=== PATIENT | male | born 1935 | race Caucasian/White ===

== ENCOUNTER 2023-09-30 09:54 | Day surgery (SDC) | payer BC ==
[2023-09-30] MEDS ORDERED: DEXAMETHASONE 4 MG TABLET (FP) PO ONE (10:00)
[2023-09-30] MEDS ORDERED: GRANISETRON HCL 1 MG TABLET PO ONE (10:00)
[2023-09-30] MEDS ORDERED: BORTEZOMIB 2.5 MG/ML SUB-Q INJECTION SQ ONE (10:30)
[2023-09-30 10:45] LABS: BASO % 0.6 % (0-2.0); EOS % 2.2 % (0-4.5); HEMATOCRIT 24.2 % (35.4-49); HEMOGLOBIN 7.9 GM/dL (11.7-16.9); LYMPH % 22.9 % (8-40); MCH 30.9 pg (25.7-33.7); MCHC 32.6 g/dl (32.0-35.9); MEAN CELL VOLUME 94.8 fl (80-96); MEAN PLT VOLUME 7.1 fl (7.5-11.1); MONO % 7.4 % (3.8-10.2); NEUT % 66.9 % (42.8-82.8); PLATELET COUNT 269 10^3/uL (134-434); RBC 2.55 M/mm3 (4.00-5.60); RDW 16.8 % (11.9-15.9); WHITE BLOOD COUNT 2.8 K/mm3 (4.0-10.0)
[2023-09-30 11:07] LABS: POTASSIUM 4.2 mmol/L (3.5-5.1)
[2023-09-30 11:10] LABS: ALBUMIN 3.1 g/dl (3.4-5.0); BLOOD UREA NITROGEN 21.7 mg/dL (7-18); CALCIUM 10.5 mg/dL (8.5-10.1)
[2023-09-30 11:12] LABS: BILIRUBIN,DIRECT 0.1 mg/dL (0.0-0.2)
[2023-09-30 11:13] LABS: CREATININE 1.2 mg/dL (0.55-1.3)
[2023-09-30 11:15] LABS: TOT PROT 9.5 g/dl (6.4-8.2)
[2023-09-30 11:16] LABS: BILIRUBIN,TOTAL 0.3 mg/dL (0.2-1)
[2023-09-30 14:04] VITALS: BP 113/62; PULSE 91; RESP 18; TEMP 97.4
[2023-10-02 16:13] LABS: FREE KAPPA,SERUM 4.5 mg/L (3.3-19.4)
== END 2023-09-30 12:30 | disposition home or self-care (01) ==
LOC: JONCCHEMO 09:54 → J7W 09:55 → JONCCHEMO 12:30
PROVIDERS: ATTEND Internal Medicine Hematology & Oncology
DX: Z51.11 Encounter for antineoplastic chemotherapy (principal); C90.00 Multiple myeloma not having achieved remission
CPT/HCPCS: 36415; 80048; 80076; 82784; 83883; 84155; 84165; 85025; 96401; J9041

== ENCOUNTER 2023-10-07 10:01 | Day surgery (SDC) | payer BC ==
[~2023-10-07 10:01] MED LIST: BORTEZOMIB 2.5 MG/ML SUB-Q INJECTION SQ ONE; GRANISETRON HCL 1 MG TABLET PO ONE
[2023-10-07 10:57] LABS: BASO % 0.6 % (0-2.0); EOS % 1.8 % (0-4.5); LYMPH % 17.7 % (8-40); MCH 31.6 pg (25.7-33.7); MCHC 33.2 g/dl (32.0-35.9); MEAN CELL VOLUME 95.3 fl (80-96); MEAN PLT VOLUME 7.4 fl (7.5-11.1); MONO % 8.8 % (3.8-10.2); NEUT % 71.1 % (42.8-82.8); PLATELET COUNT 224 10^3/uL (134-434); RBC 2.52 M/mm3 (4.00-5.60); RDW 16.8 % (11.9-15.9); WHITE BLOOD COUNT 3.1 K/mm3 (4.0-10.0)
[2023-10-07 11:21] LABS: POTASSIUM 4.5 mmol/L (3.5-5.1)
[2023-10-07 11:24] LABS: ALBUMIN 3.1 g/dl (3.4-5.0); BLOOD UREA NITROGEN 22.8 mg/dL (7-18); CALCIUM 10.6 mg/dL (8.5-10.1)
[2023-10-07 11:27] LABS: BILIRUBIN,DIRECT 0.1 mg/dL (0.0-0.2); CREATININE 1.3 mg/dL (0.55-1.3)
[2023-10-07 11:29] LABS: BILIRUBIN,TOTAL 0.2 mg/dL (0.2-1); TOT PROT 9.4 g/dl (6.4-8.2)
[2023-10-07] MEDS: DEXAMETHASONE 4 MG TABLET (FP) PO ONE ×2 (12:15→12:19)
[2023-10-07 17:39] VITALS: BP 115/57; PULSE 66; RESP 18; TEMP 97.9
[2023-10-09 16:08] LABS: FREE KAPPA,SERUM 4.3 mg/L (3.3-19.4)
== END 2023-10-07 12:30 | disposition home or self-care (01) ==
LOC: J7W 10:01 → JONCCHEMO 10:01
PROVIDERS: ATTEND Internal Medicine Hematology & Oncology
DX: Z51.11 Encounter for antineoplastic chemotherapy (principal); C90.00 Multiple myeloma not having achieved remission
CPT/HCPCS: 36415; 80048; 80076; 82784; 83883; 84155; 84165; 85025; 96401; J9041

== ENCOUNTER 2023-10-14 09:40 | Day surgery (SDC) | payer BC ==
[2023-10-14] MEDS ORDERED: GRANISETRON HCL 1 MG TABLET PO ONE (10:00)
[2023-10-14] MEDS ORDERED: DEXAMETHASONE 4 MG TABLET (FP) PO ONE (10:00)
[2023-10-14] MEDS ORDERED: BORTEZOMIB 2.5 MG/ML SUB-Q INJECTION SQ ONE (10:00)
[2023-10-14 10:15] LABS: BASO % 0.4 % (0-2.0); EOS % 2.1 % (0-4.5); HEMOGLOBIN 7.5 GM/dL (11.7-16.9); LYMPH % 24.9 % (8-40); MCH 31.4 pg (25.7-33.7); MCHC 32.6 g/dl (32.0-35.9); MEAN CELL VOLUME 96.3 fl (80-96); MEAN PLT VOLUME 8.3 fl (7.5-11.1); MONO % 10.1 % (3.8-10.2); NEUT % 62.5 % (42.8-82.8); PLATELET COUNT 185 10^3/uL (134-434); RBC 2.39 M/mm3 (4.00-5.60); WHITE BLOOD COUNT 3.6 K/mm3 (4.0-10.0)
[2023-10-14 10:35] LABS: POTASSIUM 4.2 mmol/L (3.5-5.1)
[2023-10-14 10:37] LABS: BLOOD UREA NITROGEN 30.2 mg/dL (7-18)
[2023-10-14 10:38] LABS: ALBUMIN 2.9 g/dl (3.4-5.0)
[2023-10-14 10:40] LABS: BILIRUBIN,DIRECT 0.1 mg/dL (0.0-0.2); CREATININE 1.3 mg/dL (0.55-1.3)
[2023-10-14 10:42] LABS: BILIRUBIN,TOTAL 0.2 mg/dL (0.2-1); TOT PROT 8.9 g/dl (6.4-8.2)
[2023-10-14 16:13] VITALS: BP 122/53; PULSE 71; RESP 18; TEMP 97.7
[2023-10-15 17:09] LABS: FREE KAPPA,SERUM 4.5 mg/L (3.3-19.4)
== END 2023-10-14 12:00 | disposition home or self-care (01) ==
LOC: JONCCHEMO 09:40 → J7W 09:45 → JONCCHEMO 12:00
PROVIDERS: ATTEND Internal Medicine Hematology & Oncology
DX: Z51.11 Encounter for antineoplastic chemotherapy (principal); C90.00 Multiple myeloma not having achieved remission
CPT/HCPCS: 36415; 80048; 80076; 82784; 83883; 84155; 84165; 85025; 96401; J9041

== ENCOUNTER 2023-10-21 14:25 | Day surgery (SDC) | payer OTHER, BC ==
[2023-10-21 14:47] LABS: BASO % 0.4 % (0-2.0); EOS % 1.5 % (0-4.5); HEMATOCRIT 24.1 % (35.4-49); HEMOGLOBIN 7.9 GM/dL (11.7-16.9); LYMPH % 20.1 % (8-40); MCH 31.4 pg (25.7-33.7); MCHC 32.6 g/dl (32.0-35.9); MEAN CELL VOLUME 96.4 fl (80-96); PLATELET COUNT 185 10^3/uL (134-434); RBC 2.51 M/mm3 (4.00-5.60); RDW 17.1 % (11.9-15.9)
[2023-10-21 15:05] LABS: CALCIUM 8.9 mg/dL (8.5-10.1)
[2023-10-21 15:06] LABS: BLOOD UREA NITROGEN 18.3 mg/dL (7-18)
[2023-10-21 15:08] LABS: BILIRUBIN,DIRECT 0.1 mg/dL (0.0-0.2); CREATININE 1.2 mg/dL (0.55-1.3)
[2023-10-21 15:10] LABS: BILIRUBIN,TOTAL 0.2 mg/dL (0.2-1)
[2023-10-21] MEDS: DEXAMETHASONE 4 MG TABLET (FP) PO ONE ×2 (15:29→15:36)
[2023-10-21 18:07] VITALS: BP 119/56; PULSE 69; RESP 18; TEMP 98
[2023-10-23 16:09] LABS: FREE KAPPA,SERUM 5.9 mg/L (3.3-19.4)
== END 2023-10-21 16:30 | disposition home or self-care (01) ==
LOC: JONCCHEMO 14:25 → J7W 14:25 → JONCCHEMO 16:30
PROVIDERS: ATTEND Internal Medicine Hematology & Oncology
DX: Z51.11 Encounter for antineoplastic chemotherapy (principal); C90.00 Multiple myeloma not having achieved remission
CPT/HCPCS: 36415; 80048; 80076; 82784; 83883; 84155; 84165; 85025; 96401; J9041

== ENCOUNTER 2023-10-28 09:30 | Day surgery (SDC) | payer OTHER, BC ==
[~2023-10-28 09:30] MED LIST changes: -BORTEZOMIB 2.5 MG/ML SUB-Q INJECTION SQ ONE; +DEXAMETHASONE 4 MG TABLET (FP) PO ONE
[2023-10-28] MEDS ORDERED: BORTEZOMIB 2.5 MG/ML SUB-Q INJECTION SQ ONE (10:00)
[2023-10-28 10:36] LABS: BASO % 0.6 % (0-2.0); EOS % 2.9 % (0-4.5); HEMATOCRIT 25.2 % (35.4-49); HEMOGLOBIN 8.1 GM/dL (11.7-16.9); LYMPH % 21.2 % (8-40); MCH 30.8 pg (25.7-33.7); MEAN CELL VOLUME 96.2 fl (80-96); MONO % 8.9 % (3.8-10.2); NEUT % 66.4 % (42.8-82.8); PLATELET COUNT 220 10^3/uL (134-434); RBC 2.62 M/mm3 (4.00-5.60); RDW 16.8 % (11.9-15.9); WHITE BLOOD COUNT 3.1 K/mm3 (4.0-10.0)
[2023-10-28 11:04] LABS: POTASSIUM 4.1 mmol/L (3.5-5.1)
[2023-10-28 11:06] LABS: ALBUMIN 2.9 g/dl (3.4-5.0); BLOOD UREA NITROGEN 12.6 mg/dL (7-18); CALCIUM 8.7 mg/dL (8.5-10.1)
[2023-10-28 11:09] LABS: BILIRUBIN,DIRECT 0.1 mg/dL (0.0-0.2); CREATININE 1.2 mg/dL (0.55-1.3)
[2023-10-28 11:11] LABS: BILIRUBIN,TOTAL 0.2 mg/dL (0.2-1); TOT PROT 8.8 g/dl (6.4-8.2)
[2023-10-28 17:34] VITALS: BP 128/55; PULSE 70; RESP 16; TEMP 97.4
[2023-10-29 17:09] LABS: IG A QN SERUM. 5 mg/dL (61-437)
[2023-10-30 17:09] LABS: FREE KAPPA,SERUM 4.9 mg/L (3.3-19.4)
== END 2023-10-28 11:30 | disposition home or self-care (01) ==
LOC: JONCCHEMO 09:30 → J7W 09:48 → JONCCHEMO 11:30
PROVIDERS: ATTEND Internal Medicine Hematology & Oncology
DX: Z51.11 Encounter for antineoplastic chemotherapy (principal); C90.00 Multiple myeloma not having achieved remission
CPT/HCPCS: 36415; 80048; 80076; 82784; 83883; 84155; 84165; 85025; 96401; J9041

== ENCOUNTER 2023-11-04 09:52 | Day surgery (SDC) | payer BC, OTHER ==
[2023-11-04] MEDS ORDERED: BORTEZOMIB 2.5 MG/ML SUB-Q INJECTION SQ ONE (10:00)
[2023-11-04 10:40] LABS: BASO % 0.6 % (0-2.0); EOS % 2.8 % (0-4.5); HEMATOCRIT 24.1 % (35.4-49); HEMOGLOBIN 7.9 GM/dL (11.7-16.9); LYMPH % 19.9 % (8-40); MCH 31.1 pg (25.7-33.7); MCHC 32.5 g/dl (32.0-35.9); MEAN CELL VOLUME 95.7 fl (80-96); MEAN PLT VOLUME 7.6 fl (7.5-11.1); MONO % 10.1 % (3.8-10.2); NEUT % 66.6 % (42.8-82.8); PLATELET COUNT 231 10^3/uL (134-434); RBC 2.52 M/mm3 (4.00-5.60); RDW 15.8 % (11.9-15.9); WHITE BLOOD COUNT 3.4 K/mm3 (4.0-10.0)
[2023-11-04 10:50] LABS: POTASSIUM 4.3 mmol/L (3.5-5.1)
[2023-11-04 10:53] LABS: BLOOD UREA NITROGEN 24.2 mg/dL (7-18); CALCIUM 9.4 mg/dL (8.5-10.1)
[2023-11-04 10:56] LABS: BILIRUBIN,DIRECT 0.1 mg/dL (0.0-0.2); CREATININE 1.4 mg/dL (0.55-1.3)
[2023-11-04 10:58] LABS: BILIRUBIN,TOTAL 0.3 mg/dL (0.2-1); TOT PROT 8.9 g/dl (6.4-8.2)
[2023-11-04 17:07] VITALS: BP 137/70; PULSE 66; RESP 18; TEMP 98
[2023-11-05 16:07] LABS: FREE KAPPA,SERUM 5.8 mg/L (3.3-19.4)
[2023-11-05 18:07] LABS: IG A QN SERUM. 5 mg/dL (61-437)
== END 2023-11-04 12:30 | disposition home or self-care (01) ==
LOC: J7W 09:52 → JONCCHEMO 09:52
PROVIDERS: ATTEND Internal Medicine Hematology & Oncology
DX: Z51.11 Encounter for antineoplastic chemotherapy (principal); C90.00 Multiple myeloma not having achieved remission
CPT/HCPCS: 36415; 80048; 80076; 82784; 83883; 84155; 84165; 85025; 96401; J9041

== ENCOUNTER 2023-11-18 10:08 | Day surgery (SDC) | payer BC, OTHER ==
[~2023-11-18 10:08] MED LIST changes: +BORTEZOMIB 2.5 MG/ML SUB-Q INJECTION SQ ONE
[2023-11-18] MEDS ORDERED: BORTEZOMIB 2.5 MG/ML SUB-Q INJECTION SQ ONE (10:30)
[2023-11-18 11:03] LABS: BASO % 0.8 % (0-2.0); EOS % 3.7 % (0-4.5); HEMOGLOBIN 7.8 GM/dL (11.7-16.9); LYMPH % 18.3 % (8-40); MCH 31.2 pg (25.7-33.7); MCHC 32.5 g/dl (32.0-35.9); MEAN CELL VOLUME 96.2 fl (80-96); MEAN PLT VOLUME 7.3 fl (7.5-11.1); MONO % 6.4 % (3.8-10.2); NEUT % 70.8 % (42.8-82.8); PLATELET COUNT 243 10^3/uL (134-434); RBC 2.49 M/mm3 (4.00-5.60); RDW 15.9 % (11.9-15.9); WHITE BLOOD COUNT 3.2 K/mm3 (4.0-10.0)
[2023-11-18 11:16] LABS: POTASSIUM 4.3 mmol/L (3.5-5.1)
[2023-11-18 11:18] LABS: CALCIUM 9.1 mg/dL (8.5-10.1)
[2023-11-18 11:19] LABS: BLOOD UREA NITROGEN 18.6 mg/dL (7-18)
[2023-11-18 11:22] LABS: BILIRUBIN,DIRECT 0.1 mg/dL (0.0-0.2); CREATININE 1.2 mg/dL (0.55-1.3)
[2023-11-18 11:24] LABS: BILIRUBIN,TOTAL 0.2 mg/dL (0.2-1); TOT PROT 9.2 g/dl (6.4-8.2)
[2023-11-18 18:27] VITALS: BP 135/63; PULSE 71; RESP 20; TEMP 97.8
[2023-11-20 02:07] LABS: IG A QN SERUM. <5 mg/dL (61-437)
[2023-11-20 17:06] LABS: FREE KAPPA,SERUM 5.4 mg/L (3.3-19.4)
== END 2023-11-18 13:30 | disposition home or self-care (01) ==
LOC: JONCCHEMO 10:08 → J7W 10:09 → JONCCHEMO 13:30
PROVIDERS: ATTEND Internal Medicine Hematology & Oncology
DX: Z51.11 Encounter for antineoplastic chemotherapy (principal); C90.00 Multiple myeloma not having achieved remission
CPT/HCPCS: 36415; 80048; 80076; 82784; 83883; 84155; 84165; 85025; 96401; J9041

== ENCOUNTER 2023-11-25 10:29 | Day surgery (SDC) | payer OTHER, BC ==
[2023-11-25 11:23] LABS: BASO % 0.6 % (0-2.0); EOS % 3.4 % (0-4.5); HEMATOCRIT 23.9 % (35.4-49); HEMOGLOBIN 7.8 GM/dL (11.7-16.9); LYMPH % 21.3 % (8-40); MCH 31.2 pg (25.7-33.7); MCHC 32.6 g/dl (32.0-35.9); MEAN CELL VOLUME 95.6 fl (80-96); MEAN PLT VOLUME 7.8 fl (7.5-11.1); MONO % 13.5 % (3.8-10.2); NEUT % 61.2 % (42.8-82.8); PLATELET COUNT 228 10^3/uL (134-434); RDW 15.3 % (11.9-15.9)
[2023-11-25 11:55] LABS: POTASSIUM 4.2 mmol/L (3.5-5.1)
[2023-11-25 11:59] LABS: ALBUMIN 3.1 g/dl (3.4-5.0); BLOOD UREA NITROGEN 18.4 mg/dL (7-18); CALCIUM 9.6 mg/dL (8.5-10.1)
[2023-11-25 12:01] LABS: BILIRUBIN,DIRECT 0.1 mg/dL (0.0-0.2); CREATININE 1.2 mg/dL (0.55-1.3)
[2023-11-25 12:03] LABS: BILIRUBIN,TOTAL 0.2 mg/dL (0.2-1); TOT PROT 9.2 g/dl (6.4-8.2)
[2023-11-25] MEDS: GRANISETRON HCL 1 MG TABLET PO ONE (12:51)
[2023-11-25] MEDS: DEXAMETHASONE 4 MG TABLET (FP) PO ONE (12:51)
[2023-11-25] MEDS: BORTEZOMIB 2.5 MG/ML SUB-Q INJECTION SQ ONE (13:12)
[2023-11-25 15:29] VITALS: BP 130/62; PULSE 67; RESP 20; TEMP 97.9
[2023-11-26 17:07] LABS: FREE KAPPA,SERUM 5.3 mg/L (3.3-19.4); IG A QN SERUM. <5 mg/dL (61-437)
== END 2023-11-25 13:20 | disposition home or self-care (01) ==
LOC: JONCCHEMO 10:29 → J7W 10:30 → JONCCHEMO 13:20
PROVIDERS: ATTEND Internal Medicine Hematology & Oncology
DX: Z51.11 Encounter for antineoplastic chemotherapy (principal); C90.00 Multiple myeloma not having achieved remission
CPT/HCPCS: 36415; 80048; 80076; 82784; 83883; 84155; 84165; 85025; 96401; J9041

== ENCOUNTER 2023-12-02 10:04 | Day surgery (SDC) | payer OTHER, BC ==
[2023-12-02 10:56] LABS: BASO % 0.5 % (0-2.0); EOS % 2.7 % (0-4.5); HEMATOCRIT 24.4 % (35.4-49); HEMOGLOBIN 8.1 GM/dL (11.7-16.9); LYMPH % 18.5 % (8-40); MCH 31.8 pg (25.7-33.7); MCHC 33.3 g/dl (32.0-35.9); MEAN CELL VOLUME 95.5 fl (80-96); MEAN PLT VOLUME 7.8 fl (7.5-11.1); MONO % 11.8 % (3.8-10.2); NEUT % 66.5 % (42.8-82.8); PLATELET COUNT 225 10^3/uL (134-434); RBC 2.56 M/mm3 (4.00-5.60); RDW 15.8 % (11.9-15.9)
[2023-12-02] MEDS: DEXAMETHASONE SODIUM PHOSPHATE 20 MG, DIPHENHYDRAMINE 50 MG in SODIUM CHLORIDE 100 ML IVPB ONE (11:18)
[2023-12-02] MEDS: ACETAMINOPHEN 325 MG TABLET (FP) PO ONE (11:18)
[2023-12-02] MEDS: MONTELUKAST NA 10 MG TABLET PO ONE (11:19)
[2023-12-02 11:30] LABS: POTASSIUM 4.6 mmol/L (3.5-5.1)
[2023-12-02 11:32] LABS: CALCIUM 9.6 mg/dL (8.5-10.1)
[2023-12-02 11:33] LABS: ALBUMIN 3.3 g/dl (3.4-5.0); BLOOD UREA NITROGEN 32.6 mg/dL (7-18)
[2023-12-02 11:36] LABS: BILIRUBIN,DIRECT 0.1 mg/dL (0.0-0.2); CREATININE 1.5 mg/dL (0.55-1.3)
[2023-12-02 11:38] LABS: BILIRUBIN,TOTAL 0.3 mg/dL (0.2-1); TOT PROT 9.6 g/dl (6.4-8.2)
[2023-12-02] MEDS: BORTEZOMIB 2.5 MG/ML SUB-Q INJECTION SQ ONE (12:40)
[2023-12-02] MEDS: DARATUMUMAB-HYALURONIDASE-FIHJ (FASPRO) 15 ML VIAL SQ ONE (12:43)
[2023-12-02 16:13] VITALS: RESP 20; TEMP 97.8
[2023-12-02 16:22] VITALS: BP 134/60; PULSE 72
[2023-12-03 15:07] LABS: IG A QN SERUM. <5 mg/dL (61-437)
[2023-12-03 16:09] LABS: FREE KAPPA,SERUM 6.4 mg/L (3.3-19.4)
== END 2023-12-02 14:00 | disposition home or self-care (01) ==
LOC: JONCCHEMO 10:04 → J7W 10:06 → JONCCHEMO 14:00
PROVIDERS: ATTEND Internal Medicine Hematology & Oncology
PROC: 3E033GC Introduction of Other Therapeutic Substance into Peripheral Vein, Percutaneous Approach (ICD-10-PCS; principal; 2023-12-02)
PROC: 3E01305 Introduction of Other Antineoplastic into Subcutaneous Tissue, Percutaneous Approach (ICD-10-PCS; 2023-12-02)
PROC: 3E01305 Introduction of Other Antineoplastic into Subcutaneous Tissue, Percutaneous Approach (ICD-10-PCS; 2023-12-02)
DX: Z51.11 Encounter for antineoplastic chemotherapy (principal); C90.00 Multiple myeloma not having achieved remission
CPT/HCPCS: 36415; 80048; 80076; 82784; 83883; 84155; 84165; 85025; 86850; 86900; 86901; 96365; 96401; J9041; J9144

== ENCOUNTER 2023-12-09 10:16 | Day surgery (SDC) | payer OTHER, BC ==
[2023-12-09 11:05] LABS: BASO % 0.1 % (0-2.0); HEMATOCRIT 23.1 % (35.4-49); HEMOGLOBIN 7.6 GM/dL (11.7-16.9); LYMPH % 7.7 % (8-40); MCH 31.3 pg (25.7-33.7); MEAN CELL VOLUME 94.8 fl (80-96); MEAN PLT VOLUME 8.7 fl (7.5-11.1); MONO % 8.9 % (3.8-10.2); NEUT % 82.3 % (42.8-82.8); PLATELET COUNT 182 10^3/uL (134-434); RBC 2.44 M/mm3 (4.00-5.60); RDW 14.9 % (11.9-15.9); WHITE BLOOD COUNT 3.5 K/mm3 (4.0-10.0)
[2023-12-09 11:21] LABS: POTASSIUM 4.1 mmol/L (3.5-5.1)
[2023-12-09 11:24] LABS: ALBUMIN 2.9 g/dl (3.4-5.0); BLOOD UREA NITROGEN 29.9 mg/dL (7-18)
[2023-12-09 11:27] LABS: BILIRUBIN,DIRECT 0.1 mg/dL (0.0-0.2); CREATININE 1.3 mg/dL (0.55-1.3)
[2023-12-09 11:28] LABS: TOT PROT 8.8 g/dl (6.4-8.2)
[2023-12-09 11:29] LABS: BILIRUBIN,TOTAL 0.2 mg/dL (0.2-1)
[2023-12-09] MEDS: ACETAMINOPHEN 325 MG TABLET (FP) PO ONE (11:36)
[2023-12-09] MEDS: DEXAMETHASONE SODIUM PHOSPHATE 20 MG, DIPHENHYDRAMINE 50 MG in SODIUM CHLORIDE 100 ML IVPB ONE (11:36)
[2023-12-09] MEDS: GRANISETRON HCL 1 MG TABLET PO ONE (12:17)
[2023-12-09] MEDS: BORTEZOMIB 2.5 MG/ML SUB-Q INJECTION SQ ONE (13:25)
[2023-12-09] MEDS: DARATUMUMAB-HYALURONIDASE-FIHJ (FASPRO) 15 ML VIAL SQ ONE (13:26)
[2023-12-09 16:45] VITALS: RESP 18; TEMP 97.9
[2023-12-09 16:49] VITALS: BP 112/54; PULSE 74
[2023-12-10 17:06] LABS: FREE KAPPA,SERUM 3.5 mg/L (3.3-19.4)
[2023-12-13 07:12] LABS: IG A QN SERUM. <5 mg/dL (61-437)
== END 2023-12-09 15:00 | disposition home or self-care (01) ==
LOC: JONCCHEMO 10:16 → J7W 10:17 → JONCCHEMO 15:00
PROVIDERS: ATTEND Internal Medicine Hematology & Oncology
PROC: 3E01305 Introduction of Other Antineoplastic into Subcutaneous Tissue, Percutaneous Approach (ICD-10-PCS; principal; 2023-12-09)
PROC: 3E01305 Introduction of Other Antineoplastic into Subcutaneous Tissue, Percutaneous Approach (ICD-10-PCS; 2023-12-09)
PROC: 3E033GC Introduction of Other Therapeutic Substance into Peripheral Vein, Percutaneous Approach (ICD-10-PCS; 2023-12-09)
DX: Z51.11 Encounter for antineoplastic chemotherapy (principal); C90.00 Multiple myeloma not having achieved remission
CPT/HCPCS: 36415; 80048; 80076; 82784; 83883; 84155; 84165; 85025; 96365; 96401; J9041; J9144

== ENCOUNTER 2023-12-16 09:45 | Day surgery (SDC) | payer OTHER, BC ==
[2023-12-16 10:06] LABS: BASO % 0.1 % (0-2.0); EOS % 0.2 % (0-4.5); HEMATOCRIT 22.5 % (35.4-49); HEMOGLOBIN 7.5 GM/dL (11.7-16.9); LYMPH % 9.3 % (8-40); MCH 31.3 pg (25.7-33.7); MCHC 33.4 g/dl (32.0-35.9); MEAN CELL VOLUME 93.8 fl (80-96); MONO % 8.3 % (3.8-10.2); NEUT % 82.1 % (42.8-82.8); PLATELET COUNT 206 10^3/uL (134-434); RBC 2.39 M/mm3 (4.00-5.60); RDW 15.3 % (11.9-15.9); WHITE BLOOD COUNT 3.9 K/mm3 (4.0-10.0)
[2023-12-16 10:20] VITALS: RESP 20; TEMP 98.2
[2023-12-16 10:33] LABS: POTASSIUM 4.3 mmol/L (3.5-5.1)
[2023-12-16 10:38] LABS: CALCIUM 8.7 mg/dL (8.5-10.1)
[2023-12-16 10:39] LABS: ALBUMIN 2.8 g/dl (3.4-5.0); BLOOD UREA NITROGEN 26.4 mg/dL (7-18)
[2023-12-16 10:41] LABS: BILIRUBIN,DIRECT 0.1 mg/dL (0.0-0.2)
[2023-12-16 10:42] LABS: CREATININE 1.3 mg/dL (0.55-1.3)
[2023-12-16 10:43] LABS: BILIRUBIN,TOTAL 0.2 mg/dL (0.2-1); TOT PROT 8.6 g/dl (6.4-8.2)
[2023-12-16] MEDS: ACETAMINOPHEN 325 MG TABLET (FP) PO ONE (11:28)
[2023-12-16] MEDS: DEXAMETHASONE SODIUM PHOSPHATE 20 MG, DIPHENHYDRAMINE 50 MG in SODIUM CHLORIDE 100 ML IVPB ONE (11:28)
[2023-12-16] MEDS: GRANISETRON HCL 1 MG TABLET PO ONE (11:29)
[2023-12-16] MEDS: DARATUMUMAB-HYALURONIDASE-FIHJ (FASPRO) 15 ML VIAL SQ ONE (13:01)
[2023-12-16] MEDS: BORTEZOMIB 2.5 MG/ML SUB-Q INJECTION SQ ONE (13:02)
[2023-12-16 14:17] VITALS: BP 115/57; PULSE 73
[2023-12-17 17:08] LABS: IG A QN SERUM. <5 mg/dL (61-437)
[2023-12-18 17:07] LABS: FREE KAPPA,SERUM 3.3 mg/L (3.3-19.4)
== END 2023-12-16 14:00 | disposition home or self-care (01) ==
LOC: JONCCHEMO 09:45 → J7W 09:46 → JONCCHEMO 14:00
PROVIDERS: ATTEND Internal Medicine Hematology & Oncology
PROC: 3E033GC Introduction of Other Therapeutic Substance into Peripheral Vein, Percutaneous Approach (ICD-10-PCS; principal; 2023-12-16)
PROC: 3E01305 Introduction of Other Antineoplastic into Subcutaneous Tissue, Percutaneous Approach (ICD-10-PCS; 2023-12-16)
PROC: 3E01305 Introduction of Other Antineoplastic into Subcutaneous Tissue, Percutaneous Approach (ICD-10-PCS; 2023-12-16)
DX: Z51.11 Encounter for antineoplastic chemotherapy (principal); C90.00 Multiple myeloma not having achieved remission
CPT/HCPCS: 36415; 80048; 80076; 82784; 83883; 84155; 84165; 85025; 96365; 96401; J9041; J9144

== ENCOUNTER 2023-12-23 08:50 | Day surgery (SDC) | payer OTHER, BC ==
[2023-12-23 10:36] VITALS: RESP 18; TEMP 98.2
[2023-12-23 10:37] LABS: BASO % 0.1 % (0-2.0); EOS % 0.2 % (0-4.5); HEMATOCRIT 23.3 % (35.4-49); HEMOGLOBIN 7.5 GM/dL (11.7-16.9); LYMPH % 10.7 % (8-40); MCH 30.5 pg (25.7-33.7); MCHC 32.2 g/dl (32.0-35.9); MEAN CELL VOLUME 94.7 fl (80-96); MEAN PLT VOLUME 7.9 fl (7.5-11.1); MONO % 8.2 % (3.8-10.2); NEUT % 80.8 % (42.8-82.8); PLATELET COUNT 245 10^3/uL (134-434); RBC 2.46 M/mm3 (4.00-5.60); RDW 15.3 % (11.9-15.9); WHITE BLOOD COUNT 3.3 K/mm3 (4.0-10.0)
[2023-12-23 11:13] LABS: POTASSIUM 4.3 mmol/L (3.5-5.1)
[2023-12-23 11:17] LABS: ALBUMIN 2.8 g/dl (3.4-5.0); BLOOD UREA NITROGEN 14.8 mg/dL (7-18); CALCIUM 8.3 mg/dL (8.5-10.1)
[2023-12-23 11:20] LABS: BILIRUBIN,DIRECT 0.1 mg/dL (0.0-0.2); CREATININE 1.2 mg/dL (0.55-1.3)
[2023-12-23 11:22] LABS: BILIRUBIN,TOTAL 0.2 mg/dL (0.2-1); TOT PROT 8.5 g/dl (6.4-8.2)
[2023-12-23] MEDS: GRANISETRON HCL 1 MG TABLET PO ONE (11:42)
[2023-12-23] MEDS: DEXAMETHASONE SODIUM PHOSPHATE 20 MG, DIPHENHYDRAMINE 50 MG in SODIUM CHLORIDE 100 ML IVPB ONE (11:42)
[2023-12-23] MEDS: ACETAMINOPHEN 325 MG TABLET (FP) PO ONE (11:42)
[2023-12-23] MEDS: BORTEZOMIB 2.5 MG/ML SUB-Q INJECTION SQ ONE (12:41)
[2023-12-23] MEDS: DARATUMUMAB-HYALURONIDASE-FIHJ (FASPRO) 15 ML VIAL SQ ONE (12:42)
[2023-12-23 15:23] VITALS: BP 115/56; PULSE 71
[2023-12-24 16:08] LABS: IG A QN SERUM. 5 mg/dL (61-437)
[2023-12-25 17:07] LABS: FREE KAPPA,SERUM 2.7 mg/L (3.3-19.4)
== END 2023-12-23 13:50 | disposition home or self-care (01) ==
LOC: JONCCHEMO 08:50 → J7W 10:00 → JONCCHEMO 13:50
PROVIDERS: ATTEND Internal Medicine Hematology & Oncology
PROC: 3E033GC Introduction of Other Therapeutic Substance into Peripheral Vein, Percutaneous Approach (ICD-10-PCS; principal; 2023-12-23)
PROC: 3E01305 Introduction of Other Antineoplastic into Subcutaneous Tissue, Percutaneous Approach (ICD-10-PCS; 2023-12-23)
PROC: 3E01305 Introduction of Other Antineoplastic into Subcutaneous Tissue, Percutaneous Approach (ICD-10-PCS; 2023-12-23)
DX: Z51.11 Encounter for antineoplastic chemotherapy (principal); C90.00 Multiple myeloma not having achieved remission
CPT/HCPCS: 36415; 80048; 80076; 82784; 83883; 84153; 85025; 96365; 96401; J9041; J9144

== ENCOUNTER 2023-12-30 09:55 | Day surgery (SDC) | payer OTHER, BC ==
[2023-12-30 10:27] LABS: BASO % 0.1 % (0-2.0); EOS % 0.1 % (0-4.5); HEMATOCRIT 24.7 % (35.4-49); HEMOGLOBIN 8.1 GM/dL (11.7-16.9); LYMPH % 13.9 % (8-40); MCH 30.5 pg (25.7-33.7); MCHC 32.6 g/dl (32.0-35.9); MEAN CELL VOLUME 93.4 fl (80-96); MEAN PLT VOLUME 7.6 fl (7.5-11.1); NEUT % 78.9 % (42.8-82.8); PLATELET COUNT 273 10^3/uL (134-434); RBC 2.65 M/mm3 (4.00-5.60); RDW 15.8 % (11.9-15.9); WHITE BLOOD COUNT 4.1 K/mm3 (4.0-10.0)
[2023-12-30 10:51] LABS: CHLORIDE 107 mmol/L (98-107); POTASSIUM 4.3 mmol/L (3.5-5.1); SODIUM 138 mmol/L (136-145)
[2023-12-30 10:52] LABS: ANION GAP 5 mmol/L (4-13); BLOOD UREA NITROGEN 17.4 mg/dL (7-18); CALCIUM 8.9 mg/dL (8.5-10.1); CO2 26 mmol/L (21-32); GLUCOSE,RANDOM 124 mg/dL (74-106)
[2023-12-30 10:56] LABS: CREATININE 1.1 mg/dL (0.55-1.3)
[2023-12-30 11:51] LABS: ALBUMIN 2.9 g/dl (3.4-5.0)
[2023-12-30 11:55] LABS: BILIRUBIN,DIRECT < 0.1 mg/dL (0.0-0.2); SGOT/AST 18 U/L (15-37); SGPT/ALT 25 U/L (13-61)
[2023-12-30 11:57] LABS: ALK PHOS 131 U/L (45-117); BILIRUBIN,TOTAL 0.2 mg/dL (0.2-1); TOT PROT 8.5 g/dl (6.4-8.2)
[2023-12-30] MEDS: DEXAMETHASONE SODIUM PHOSPHATE 20 MG, DIPHENHYDRAMINE 50 MG in SODIUM CHLORIDE 100 ML IVPB ONE (12:24)
[2023-12-30] MEDS: GRANISETRON HCL 1 MG TABLET PO ONE (12:24)
[2023-12-30] MEDS: ACETAMINOPHEN 325 MG TABLET (FP) PO ONE (12:24)
[2023-12-30] MEDS: BORTEZOMIB 2.5 MG/ML SUB-Q INJECTION SQ ONE (13:01)
[2023-12-30] MEDS: DARATUMUMAB-HYALURONIDASE-FIHJ (FASPRO) 15 ML VIAL SQ ONE (13:01)
[2023-12-30 18:48] VITALS: BP 122/57; PULSE 74; RESP 20; TEMP 97.7
== END 2023-12-30 14:10 | disposition home or self-care (01) ==
LOC: JONCCHEMO 09:55 → J7W 10:00 → JONCCHEMO 14:10
PROVIDERS: ATTEND Internal Medicine Hematology & Oncology
PROC: 3E01305 Introduction of Other Antineoplastic into Subcutaneous Tissue, Percutaneous Approach (ICD-10-PCS; principal; 2023-12-30)
PROC: 3E01305 Introduction of Other Antineoplastic into Subcutaneous Tissue, Percutaneous Approach (ICD-10-PCS; 2023-12-30)
PROC: 3E033GC Introduction of Other Therapeutic Substance into Peripheral Vein, Percutaneous Approach (ICD-10-PCS; 2023-12-30)
DX: Z51.11 Encounter for antineoplastic chemotherapy (principal); C90.00 Multiple myeloma not having achieved remission
CPT/HCPCS: 36415; 80048; 80053; 80076; 85025; 96365; 96401; J9041; J9144

== ENCOUNTER 2024-01-06 10:05 | Day surgery (SDC) | payer OTHER, BC ==
[2024-01-06 11:04] LABS: BASO % 0.1 % (0-2.0); EOS % 0.1 % (0-4.5); HEMATOCRIT 25.7 % (35.4-49); HEMOGLOBIN 8.4 GM/dL (11.7-16.9); LYMPH % 13.5 % (8-40); MCH 30.8 pg (25.7-33.7); MCHC 32.5 g/dl (32.0-35.9); MEAN CELL VOLUME 94.6 fl (80-96); MEAN PLT VOLUME 8.3 fl (7.5-11.1); MONO % 6.4 % (3.8-10.2); NEUT % 79.9 % (42.8-82.8); PLATELET COUNT 264 10^3/uL (134-434); RBC 2.72 M/mm3 (4.00-5.60); RDW 15.8 % (11.9-15.9)
[2024-01-06 11:23] LABS: POTASSIUM 4.2 mmol/L (3.5-5.1)
[2024-01-06 11:26] LABS: ALBUMIN 2.9 g/dl (3.4-5.0); BLOOD UREA NITROGEN 24.6 mg/dL (7-18); CALCIUM 8.7 mg/dL (8.5-10.1)
[2024-01-06 11:29] LABS: BILIRUBIN,DIRECT 0.1 mg/dL (0.0-0.2); CREATININE 1.2 mg/dL (0.55-1.3)
[2024-01-06 11:31] LABS: BILIRUBIN,TOTAL 0.3 mg/dL (0.2-1); TOT PROT 8.4 g/dl (6.4-8.2)
[2024-01-06] MEDS: DEXAMETHASONE SODIUM PHOSPHATE 20 MG, DIPHENHYDRAMINE 50 MG in SODIUM CHLORIDE 100 ML IVPB ONE (11:44)
[2024-01-06] MEDS: GRANISETRON HCL 1 MG TABLET PO ONE (11:46)
[2024-01-06] MEDS: ACETAMINOPHEN 325 MG TABLET (FP) PO ONE (11:53)
[2024-01-06] MEDS: BORTEZOMIB 2.5 MG/ML SUB-Q INJECTION SQ ONE (12:35)
[2024-01-06] MEDS: DARATUMUMAB-HYALURONIDASE-FIHJ (FASPRO) 15 ML VIAL SQ ONE (12:35)
[2024-01-06 17:31] VITALS: TEMP 97.6
[2024-01-06 17:38] VITALS: BP 122/60; PULSE 66; RESP 18
[2024-01-07 17:11] LABS: FREE KAPPA,SERUM 3.3 mg/L (3.3-19.4); IG A QN SERUM. <5 mg/dL (61-437)
== END 2024-01-06 13:00 | disposition home or self-care (01) ==
LOC: JONCCHEMO 10:05 → J7W 10:05 → JONCCHEMO 13:00
PROVIDERS: ATTEND Internal Medicine Hematology & Oncology
PROC: 3E033GC Introduction of Other Therapeutic Substance into Peripheral Vein, Percutaneous Approach (ICD-10-PCS; principal; 2024-01-06)
PROC: 3E01305 Introduction of Other Antineoplastic into Subcutaneous Tissue, Percutaneous Approach (ICD-10-PCS; 2024-01-06)
PROC: 3E01305 Introduction of Other Antineoplastic into Subcutaneous Tissue, Percutaneous Approach (ICD-10-PCS; 2024-01-06)
DX: Z51.11 Encounter for antineoplastic chemotherapy (principal); C90.00 Multiple myeloma not having achieved remission
CPT/HCPCS: 36415; 80048; 80076; 82784; 83883; 85025; 96365; 96401; J9041; J9144

== ENCOUNTER 2024-01-13 09:22 | Day surgery (SDC) | payer OTHER, BC ==
[2024-01-13 10:10] LABS: BASO % 0.1 % (0-2.0); EOS % 0.2 % (0-4.5); HEMATOCRIT 25.4 % (35.4-49); HEMOGLOBIN 8.3 GM/dL (11.7-16.9); LYMPH % 14.4 % (8-40); MCHC 32.5 g/dl (32.0-35.9); MEAN CELL VOLUME 95.3 fl (80-96); MEAN PLT VOLUME 8.7 fl (7.5-11.1); NEUT % 76.3 % (42.8-82.8); PLATELET COUNT 214 10^3/uL (134-434); RBC 2.67 M/mm3 (4.00-5.60); RDW 16.3 % (11.9-15.9); WHITE BLOOD COUNT 5.8 K/mm3 (4.0-10.0)
[2024-01-13 10:24] LABS: CALCIUM 8.6 mg/dL (8.5-10.1)
[2024-01-13 10:25] LABS: ALBUMIN 2.9 g/dl (3.4-5.0); BLOOD UREA NITROGEN 19.4 mg/dL (7-18)
[2024-01-13 10:28] LABS: BILIRUBIN,DIRECT 0.1 mg/dL (0.0-0.2); CREATININE 1.2 mg/dL (0.55-1.3)
[2024-01-13 10:30] LABS: TOT PROT 8.3 g/dl (6.4-8.2)
[2024-01-13 10:31] LABS: BILIRUBIN,TOTAL 0.3 mg/dL (0.2-1)
[2024-01-13 10:35] VITALS: RESP 18
[2024-01-13] MEDS: ACETAMINOPHEN 325 MG TABLET (FP) PO ONE (11:01)
[2024-01-13] MEDS: DEXAMETHASONE SODIUM PHOSPHATE 20 MG, DIPHENHYDRAMINE 50 MG in SODIUM CHLORIDE 100 ML IVPB ONE (11:01)
[2024-01-13] MEDS: GRANISETRON HCL 1 MG TABLET PO ONE (11:01)
[2024-01-13] MEDS: BORTEZOMIB 2.5 MG/ML SUB-Q INJECTION SQ ONE (11:48)
[2024-01-13] MEDS: DARATUMUMAB-HYALURONIDASE-FIHJ (FASPRO) 15 ML VIAL SQ ONE (11:49)
[2024-01-13 14:24] VITALS: BP 129/60; PULSE 65; TEMP 97.9
[2024-01-15 17:11] LABS: FREE KAPPA,SERUM 45.7 mg/L (3.3-19.4)
== END 2024-01-13 12:50 | disposition home or self-care (01) ==
LOC: J7W 09:22 → JONCCHEMO 09:22
PROVIDERS: ATTEND Internal Medicine Hematology & Oncology
PROC: 3E01305 Introduction of Other Antineoplastic into Subcutaneous Tissue, Percutaneous Approach (ICD-10-PCS; principal; 2024-01-13)
PROC: 3E01305 Introduction of Other Antineoplastic into Subcutaneous Tissue, Percutaneous Approach (ICD-10-PCS; 2024-01-13)
PROC: 3E033GC Introduction of Other Therapeutic Substance into Peripheral Vein, Percutaneous Approach (ICD-10-PCS; 2024-01-13)
DX: Z12.11 Encounter for screening for malignant neoplasm of colon (principal); C90.00 Multiple myeloma not having achieved remission
CPT/HCPCS: 36415; 80048; 80076; 82784; 83883; 85025; 96365; 96401; J9041; J9144

== ENCOUNTER 2024-01-20 11:30 | Day surgery (SDC) | payer OTHER, BC ==
[2024-01-20 12:42] LABS: POTASSIUM 4.1 mmol/L (3.5-5.1)
[2024-01-20 12:43] LABS: BASO % 0.1 % (0-2.0); EOS % 0.2 % (0-4.5); HEMATOCRIT 26.6 % (35.4-49); HEMOGLOBIN 8.4 GM/dL (11.7-16.9); LYMPH % 13.7 % (8-40); MCH 30.3 pg (25.7-33.7); MCHC 31.6 g/dl (32.0-35.9); MEAN CELL VOLUME 95.9 fl (80-96); MEAN PLT VOLUME 8.6 fl (7.5-11.1); MONO % 5.2 % (3.8-10.2); NEUT % 80.8 % (42.8-82.8); PLATELET COUNT 217 10^3/uL (134-434); RBC 2.78 M/mm3 (4.00-5.60); RDW 16.3 % (11.9-15.9)
[2024-01-20 12:44] LABS: CALCIUM 8.8 mg/dL (8.5-10.1)
[2024-01-20 12:45] LABS: BLOOD UREA NITROGEN 16.1 mg/dL (7-18)
[2024-01-20 12:48] LABS: BILIRUBIN,DIRECT 0.1 mg/dL (0.0-0.2); CREATININE 1.2 mg/dL (0.55-1.3)
[2024-01-20 12:49] LABS: TOT PROT 8.4 g/dl (6.4-8.2)
[2024-01-20 12:51] LABS: BILIRUBIN,TOTAL 0.3 mg/dL (0.2-1)
[2024-01-20] MEDS: GRANISETRON HCL 1 MG TABLET PO ONE (13:45)
[2024-01-20] MEDS: ACETAMINOPHEN 325 MG TABLET (FP) PO ONE (13:45)
[2024-01-20] MEDS: DEXAMETHASONE SODIUM PHOSPHATE 20 MG, DIPHENHYDRAMINE 50 MG in SODIUM CHLORIDE 100 ML IVPB ONE (13:45)
[2024-01-20] MEDS: BORTEZOMIB 2.5 MG/ML SUB-Q INJECTION SQ ONE (14:54)
[2024-01-20] MEDS: DARATUMUMAB-HYALURONIDASE-FIHJ (FASPRO) 15 ML VIAL SQ ONE (14:56)
[2024-01-20 17:24] VITALS: BP 120/54; PULSE 63; RESP 18; TEMP 98.1
== END 2024-01-20 15:20 | disposition home or self-care (01) ==
LOC: JONCCHEMO 11:30 → J7W 11:30 → JONCCHEMO 15:20
PROVIDERS: ATTEND Internal Medicine Hematology & Oncology
PROC: 3E01305 Introduction of Other Antineoplastic into Subcutaneous Tissue, Percutaneous Approach (ICD-10-PCS; principal; 2024-01-20)
PROC: 3E01305 Introduction of Other Antineoplastic into Subcutaneous Tissue, Percutaneous Approach (ICD-10-PCS; 2024-01-20)
PROC: 3E033GC Introduction of Other Therapeutic Substance into Peripheral Vein, Percutaneous Approach (ICD-10-PCS; 2024-01-20)
DX: Z51.11 Encounter for antineoplastic chemotherapy (principal); C90.00 Multiple myeloma not having achieved remission
CPT/HCPCS: 36415; 80048; 80076; 85025; 96365; 96401; J9041; J9144

== ENCOUNTER 2024-01-27 11:04 | Day surgery (SDC) | payer OTHER, BC ==
[~2024-01-27 11:04] MED LIST changes: -BORTEZOMIB 2.5 MG/ML SUB-Q INJECTION SQ ONE; +DARATUMUMAB-HYALURONIDASE-FIHJ (FASPRO) 15 ML VIAL SQ ONE; -DEXAMETHASONE 4 MG TABLET (FP) PO ONE; -GRANISETRON HCL 1 MG TABLET PO ONE
[2024-01-27 11:50] LABS: BASO % 0.1 % (0-2.0); EOS % 0.1 % (0-4.5); HEMATOCRIT 27.2 % (35.4-49); LYMPH % 12.2 % (8-40); MCH 31.3 pg (25.7-33.7); MCHC 33.1 g/dl (32.0-35.9); MEAN CELL VOLUME 94.6 fl (80-96); MEAN PLT VOLUME 8.4 fl (7.5-11.1); NEUT % 84.6 % (42.8-82.8); PLATELET COUNT 229 10^3/uL (134-434); RBC 2.87 M/mm3 (4.00-5.60); RDW 16.4 % (11.9-15.9); WHITE BLOOD COUNT 4.9 K/mm3 (4.0-10.0)
[2024-01-27 12:08] LABS: POTASSIUM 4.5 mmol/L (3.5-5.1)
[2024-01-27 12:09] LABS: CALCIUM 8.7 mg/dL (8.5-10.1)
[2024-01-27 12:10] LABS: BLOOD UREA NITROGEN 25.5 mg/dL (7-18)
[2024-01-27 12:13] LABS: CREATININE 1.2 mg/dL (0.55-1.3)
[2024-01-27] MEDS: DEXAMETHASONE SODIUM PHOSPHATE 20 MG, DIPHENHYDRAMINE 50 MG in SODIUM CHLORIDE 100 ML IVPB ONE (13:30)
[2024-01-27] MEDS: GRANISETRON HCL 1 MG TABLET PO ONE (13:31)
[2024-01-27] MEDS: ACETAMINOPHEN 325 MG TABLET (FP) PO ONE (13:31)
[2024-01-27] MEDS: BORTEZOMIB 2.5 MG/ML SUB-Q INJECTION SQ ONE (14:02)
[2024-01-27 18:52] VITALS: RESP 20
[2024-01-27 18:55] VITALS: BP 124/60; PULSE 64; TEMP 98
== END 2024-01-27 14:05 | disposition home or self-care (01) ==
LOC: JONCCHEMO 11:04 → J7W 11:05 → JONCCHEMO 14:05
PROVIDERS: ATTEND Internal Medicine Hematology & Oncology
PROC: 3E033GC Introduction of Other Therapeutic Substance into Peripheral Vein, Percutaneous Approach (ICD-10-PCS; principal; 2024-01-27)
PROC: 3E01305 Introduction of Other Antineoplastic into Subcutaneous Tissue, Percutaneous Approach (ICD-10-PCS; 2024-01-27)
DX: Z51.11 Encounter for antineoplastic chemotherapy (principal); C90.00 Multiple myeloma not having achieved remission
CPT/HCPCS: 36415; 80048; 85025; 96365; 96401; J9041

== ENCOUNTER 2024-02-03 10:22 | Day surgery (SDC) | payer OTHER, BC ==
[2024-02-03 11:01] LABS: BASO % 0.1 % (0-2.0); EOS % 0.3 % (0-4.5); HEMATOCRIT 29.9 % (35.4-49); HEMOGLOBIN 9.6 GM/dL (11.7-16.9); LYMPH % 14.1 % (8-40); MCH 30.6 pg (25.7-33.7); MCHC 32.2 g/dl (32.0-35.9); MEAN PLT VOLUME 7.7 fl (7.5-11.1); MONO % 5.6 % (3.8-10.2); NEUT % 79.9 % (42.8-82.8); PLATELET COUNT 281 10^3/uL (134-434); RBC 3.15 M/mm3 (4.00-5.60); RDW 16.2 % (11.9-15.9); WHITE BLOOD COUNT 5.1 K/mm3 (4.0-10.0)
[2024-02-03 11:29] LABS: POTASSIUM 4.3 mmol/L (3.5-5.1)
[2024-02-03 11:32] LABS: ALBUMIN 3.2 g/dl (3.4-5.0); BLOOD UREA NITROGEN 19.3 mg/dL (7-18)
[2024-02-03 11:34] LABS: BILIRUBIN,DIRECT 0.1 mg/dL (0.0-0.2)
[2024-02-03 11:35] LABS: CREATININE 1.2 mg/dL (0.55-1.3)
[2024-02-03 11:36] LABS: TOT PROT 8.9 g/dl (6.4-8.2)
[2024-02-03 11:37] LABS: BILIRUBIN,TOTAL 0.3 mg/dL (0.2-1)
[2024-02-03] MEDS: DEXAMETHASONE SODIUM PHOSPHATE 20 MG, DIPHENHYDRAMINE 50 MG in SODIUM CHLORIDE 100 ML IVPB ONE (11:47)
[2024-02-03] MEDS: GRANISETRON HCL 1 MG TABLET PO ONE (11:47)
[2024-02-03] MEDS: ACETAMINOPHEN 325 MG TABLET (FP) PO ONE (11:48)
[2024-02-03] MEDS: BORTEZOMIB 2.5 MG/ML SUB-Q INJECTION SQ ONE (12:39)
[2024-02-03] MEDS: DARATUMUMAB-HYALURONIDASE-FIHJ (FASPRO) 15 ML VIAL SQ ONE (12:39)
[2024-02-03 16:19] VITALS: BP 146/62; PULSE 69; RESP 20; TEMP 97.3
[2024-02-04 16:09] LABS: IG A QN SERUM. <5 mg/dL (61-437)
[2024-02-05 17:10] LABS: FREE KAPPA,SERUM 3.3 mg/L (3.3-19.4)
== END 2024-02-03 13:00 | disposition home or self-care (01) ==
LOC: JONCCHEMO 10:22 → J7W 10:23 → JONCCHEMO 13:00
PROVIDERS: ATTEND Internal Medicine Hematology & Oncology
PROC: 3E033GC Introduction of Other Therapeutic Substance into Peripheral Vein, Percutaneous Approach (ICD-10-PCS; principal; 2024-02-03)
PROC: 3E01305 Introduction of Other Antineoplastic into Subcutaneous Tissue, Percutaneous Approach (ICD-10-PCS; 2024-02-03)
DX: Z51.11 Encounter for antineoplastic chemotherapy (principal); C90.00 Multiple myeloma not having achieved remission
CPT/HCPCS: 36415; 80048; 80076; 82784; 83883; 85025; 96365; 96401; J9041; J9144

== ENCOUNTER 2024-02-10 10:07 | Day surgery (SDC) | payer OTHER, BC ==
[2024-02-10 10:28] VITALS: RESP 18; TEMP 97.6
[2024-02-10 10:29] LABS: BASO % 0.2 % (0-2.0); EOS % 0.5 % (0-4.5); HEMATOCRIT 28.3 % (35.4-49); HEMOGLOBIN 9.4 GM/dL (11.7-16.9); LYMPH % 23.9 % (8-40); MCH 31.1 pg (25.7-33.7); MCHC 33.1 g/dl (32.0-35.9); MEAN CELL VOLUME 93.8 fl (80-96); MEAN PLT VOLUME 7.8 fl (7.5-11.1); MONO % 11.8 % (3.8-10.2); NEUT % 63.6 % (42.8-82.8); PLATELET COUNT 229 10^3/uL (134-434); RBC 3.02 M/mm3 (4.00-5.60); RDW 15.8 % (11.9-15.9)
[2024-02-10 10:55] LABS: ALBUMIN 3.1 g/dl (3.4-5.0)
[2024-02-10 10:56] LABS: BLOOD UREA NITROGEN 18.6 mg/dL (7-18); CALCIUM 8.8 mg/dL (8.5-10.1)
[2024-02-10 10:57] LABS: BILIRUBIN,DIRECT 0.1 mg/dL (0.0-0.2)
[2024-02-10 10:59] LABS: CREATININE 1.2 mg/dL (0.55-1.3)
[2024-02-10 11:00] LABS: BILIRUBIN,TOTAL 0.2 mg/dL (0.2-1); TOT PROT 8.4 g/dl (6.4-8.2)
[2024-02-10] MEDS: GRANISETRON HCL 1 MG TABLET PO ONE (11:06)
[2024-02-10] MEDS: DEXAMETHASONE SODIUM PHOSPHATE 20 MG in SODIUM CHLORIDE 50 ML IVPB ONE (11:06)
[2024-02-10] MEDS: BORTEZOMIB 2.5 MG/ML SUB-Q INJECTION SQ ONE (11:40)
[2024-02-10 15:04] VITALS: BP 118/62; PULSE 70
== END 2024-02-10 12:25 | disposition home or self-care (01) ==
LOC: JONCCHEMO 10:07 → J7W 10:08 → JONCCHEMO 12:25
PROVIDERS: ATTEND Internal Medicine Hematology & Oncology
PROC: 3E053GC Introduction of Other Therapeutic Substance into Peripheral Artery, Percutaneous Approach (ICD-10-PCS; principal; 2024-02-10)
PROC: 3E01305 Introduction of Other Antineoplastic into Subcutaneous Tissue, Percutaneous Approach (ICD-10-PCS; 2024-02-10)
DX: Z51.11 Encounter for antineoplastic chemotherapy (principal); C90.00 Multiple myeloma not having achieved remission
CPT/HCPCS: 36415; 80048; 80076; 85025; 96374; 96401; J9041

== ENCOUNTER 2024-02-17 09:44 | Day surgery (SDC) | payer OTHER, BC ==
[2024-02-17 10:39] VITALS: TEMP 98.2
[2024-02-17 10:43] LABS: BASO % 0.2 % (0-2.0); EOS % 0.5 % (0-4.5); HEMOGLOBIN 9.3 GM/dL (11.7-16.9); LYMPH % 19.3 % (8-40); MCHC 32.1 g/dl (32.0-35.9); MEAN CELL VOLUME 93.7 fl (80-96); MEAN PLT VOLUME 8.3 fl (7.5-11.1); MONO % 7.8 % (3.8-10.2); NEUT % 72.2 % (42.8-82.8); PLATELET COUNT 242 10^3/uL (134-434); RBC 3.09 M/mm3 (4.00-5.60); RDW 15.8 % (11.9-15.9); WHITE BLOOD COUNT 4.2 K/mm3 (4.0-10.0)
[2024-02-17 12:07] LABS: CALCIUM 9.2 mg/dL (8.5-10.1)
[2024-02-17 12:08] LABS: BLOOD UREA NITROGEN 23.4 mg/dL (7-18)
[2024-02-17 12:11] LABS: CREATININE 1.2 mg/dL (0.55-1.3)
[2024-02-17] MEDS: ACETAMINOPHEN 325 MG TABLET (FP) PO ONE (12:14)
[2024-02-17] MEDS: GRANISETRON HCL 1 MG TABLET PO ONE (12:14)
[2024-02-17] MEDS: DEXAMETHASONE SODIUM PHOSPHATE 20 MG, DIPHENHYDRAMINE 50 MG in SODIUM CHLORIDE 100 ML IVPB ONE (12:15)
[2024-02-17] MEDS: DARATUMUMAB-HYALURONIDASE-FIHJ (FASPRO) 15 ML VIAL SQ ONE (12:53)
[2024-02-17] MEDS: BORTEZOMIB 2.5 MG/ML SUB-Q INJECTION SQ ONE (12:54)
[2024-02-17 14:56] VITALS: BP 123/60; PULSE 66; RESP 18
== END 2024-02-17 13:35 | disposition home or self-care (01) ==
LOC: JONCCHEMO 09:44 → J7W 09:44 → JONCCHEMO 13:35
PROVIDERS: ATTEND Internal Medicine Hematology & Oncology
PROC: 3E033GC Introduction of Other Therapeutic Substance into Peripheral Vein, Percutaneous Approach (ICD-10-PCS; principal; 2024-02-17)
PROC: 3E01305 Introduction of Other Antineoplastic into Subcutaneous Tissue, Percutaneous Approach (ICD-10-PCS; 2024-02-17)
PROC: 3E01305 Introduction of Other Antineoplastic into Subcutaneous Tissue, Percutaneous Approach (ICD-10-PCS; 2024-02-17)
DX: Z51.11 Encounter for antineoplastic chemotherapy (principal); C90.00 Multiple myeloma not having achieved remission
CPT/HCPCS: 36415; 80048; 85025; 96365; 96401; J9041; J9144

== ENCOUNTER 2024-02-24 11:01 | Day surgery (SDC) | payer OTHER, BC ==
[2024-02-24 12:07] LABS: CHLORIDE 104 mmol/L (98-107); POTASSIUM 4.2 mmol/L (3.5-5.1); SODIUM 133 mmol/L (136-145)
[2024-02-24 12:09] LABS: BASO % 0.1 % (0-2.0); EOS % 0.6 % (0-4.5); HEMATOCRIT 28.8 % (35.4-49); HEMOGLOBIN 9.6 GM/dL (11.7-16.9); LYMPH % 16.3 % (8-40); MCH 31.1 pg (25.7-33.7); MCHC 33.5 g/dl (32.0-35.9); MEAN CELL VOLUME 92.7 fl (80-96); MEAN PLT VOLUME 8.2 fl (7.5-11.1); MONO % 5.6 % (3.8-10.2); NEUT % 77.4 % (42.8-82.8); PLATELET COUNT 266 10^3/uL (134-434); RBC 3.11 M/mm3 (4.00-5.60); WHITE BLOOD COUNT 4.9 K/mm3 (4.0-10.0)
[2024-02-24 12:10] LABS: CALCIUM 9.3 mg/dL (8.5-10.1)
[2024-02-24 12:11] LABS: ALBUMIN 3.2 g/dl (3.4-5.0); ANION GAP 2 mmol/L (4-13); BLOOD UREA NITROGEN 18.5 mg/dL (7-18); CO2 27 mmol/L (21-32); GLUCOSE,RANDOM 102 mg/dL (74-106)
[2024-02-24 12:14] LABS: BILIRUBIN,DIRECT 0.1 mg/dL (0.0-0.2); CREATININE 1.1 mg/dL (0.55-1.3); SGOT/AST 19 U/L (15-37); SGPT/ALT 26 U/L (13-61)
[2024-02-24 12:15] LABS: BILIRUBIN,TOTAL 0.5 mg/dL (0.2-1)
[2024-02-24 12:16] LABS: TOT PROT 8.5 g/dl (6.4-8.2)
[2024-02-24 12:17] LABS: ALK PHOS 133 U/L (45-117)
[2024-02-24] MEDS ORDERED: DEXAMETHASONE SOD PHOSPHATE 10 MG/1 ML VIAL ONE (13:35)
[2024-02-24] MEDS: DEXAMETHASONE SOD PHOSPHATE 10 MG/1 ML VIAL IVPB ONE (13:36)
[2024-02-24] MEDS: GRANISETRON HCL 1 MG TABLET PO ONE (13:56)
[2024-02-24] MEDS: BORTEZOMIB 2.5 MG/ML SUB-Q INJECTION SQ ONE (14:14)
[2024-02-24 16:45] VITALS: BP 146/67; PULSE 70; RESP 20; TEMP 97.8
[2024-02-25 17:09] LABS: FREE KAPPA,SERUM 2.6 mg/L (3.3-19.4); IG A QN SERUM. <5 mg/dL (61-437)
== END 2024-02-24 14:30 | disposition home or self-care (01) ==
LOC: JONCCHEMO 11:01 → J7W 11:02 → JONCCHEMO 14:30
PROVIDERS: ATTEND Internal Medicine Hematology & Oncology
PROC: 3E01305 Introduction of Other Antineoplastic into Subcutaneous Tissue, Percutaneous Approach (ICD-10-PCS; principal; 2024-02-24)
PROC: 3E033GC Introduction of Other Therapeutic Substance into Peripheral Vein, Percutaneous Approach (ICD-10-PCS; 2024-02-24)
DX: Z51.11 Encounter for antineoplastic chemotherapy (principal); C90.00 Multiple myeloma not having achieved remission
CPT/HCPCS: 36415; 80048; 80076; 82784; 83883; 85025; 96365; 96401; J1100; J9041

== ENCOUNTER 2024-03-02 11:10 | Day surgery (SDC) | payer OTHER, BC ==
[2024-03-02 12:05] LABS: BASO % 0.2 % (0-2.0); EOS % 0.4 % (0-4.5); HEMOGLOBIN 9.4 GM/dL (11.7-16.9); LYMPH % 14.9 % (8-40); MCH 30.3 pg (25.7-33.7); MCHC 32.5 g/dl (32.0-35.9); MEAN CELL VOLUME 93.4 fl (80-96); MEAN PLT VOLUME 8.1 fl (7.5-11.1); MONO % 6.5 % (3.8-10.2); PLATELET COUNT 260 10^3/uL (134-434); RDW 15.6 % (11.9-15.9); WHITE BLOOD COUNT 5.1 K/mm3 (4.0-10.0)
[2024-03-02 12:25] LABS: POTASSIUM 4.1 mmol/L (3.5-5.1)
[2024-03-02 12:26] LABS: BLOOD UREA NITROGEN 17.8 mg/dL (7-18); CALCIUM 9.3 mg/dL (8.5-10.1)
[2024-03-02] MEDS: DEXAMETHASONE SODIUM PHOSPHATE 20 MG in SODIUM CHLORIDE 50 ML IVPB ONE (12:51)
[2024-03-02] MEDS: GRANISETRON HCL 1 MG TABLET PO ONE (12:51)
[2024-03-02] MEDS: DARATUMUMAB-HYALURONIDASE-FIHJ (FASPRO) 15 ML VIAL SQ ONE (13:25)
[2024-03-02] MEDS: BORTEZOMIB 2.5 MG/ML SUB-Q INJECTION SQ ONE (13:26)
[2024-03-02 16:26] VITALS: BP 135/61; PULSE 63; RESP 18; TEMP 98.4
== END 2024-03-02 13:40 | disposition home or self-care (01) ==
LOC: J7W 11:10 → JONCCHEMO 11:10
PROVIDERS: ATTEND Internal Medicine Hematology & Oncology
PROC: 3E01305 Introduction of Other Antineoplastic into Subcutaneous Tissue, Percutaneous Approach (ICD-10-PCS; principal; 2024-03-02)
PROC: 3E01305 Introduction of Other Antineoplastic into Subcutaneous Tissue, Percutaneous Approach (ICD-10-PCS; 2024-03-02)
PROC: 3E033GC Introduction of Other Therapeutic Substance into Peripheral Vein, Percutaneous Approach (ICD-10-PCS; 2024-03-02)
DX: Z51.11 Encounter for antineoplastic chemotherapy (principal); C90.00 Multiple myeloma not having achieved remission
CPT/HCPCS: 36415; 80048; 85025; 96374; 96401; J9041; J9144

== ENCOUNTER 2024-03-09 10:39 | Day surgery (SDC) | payer OTHER, BC ==
[2024-03-09 11:38] LABS: BASO % 0.1 % (0-2.0); HEMOGLOBIN 9.5 GM/dL (11.7-16.9); LYMPH % 21.4 % (8-40); MCH 31.6 pg (25.7-33.7); MEAN CELL VOLUME 92.9 fl (80-96); MEAN PLT VOLUME 8.2 fl (7.5-11.1); MONO % 12.4 % (3.8-10.2); NEUT % 65.1 % (42.8-82.8); PLATELET COUNT 206 10^3/uL (134-434); RBC 3.01 M/mm3 (4.00-5.60); WHITE BLOOD COUNT 3.9 K/mm3 (4.0-10.0)
[2024-03-09 12:02] LABS: POTASSIUM 4.1 mmol/L (3.5-5.1)
[2024-03-09 12:04] LABS: CALCIUM 9.1 mg/dL (8.5-10.1)
[2024-03-09 12:05] LABS: ALBUMIN 3.3 g/dl (3.4-5.0); BLOOD UREA NITROGEN 19.2 mg/dL (7-18)
[2024-03-09 12:07] LABS: BILIRUBIN,DIRECT 0.1 mg/dL (0.0-0.2); CREATININE 1.1 mg/dL (0.55-1.3)
[2024-03-09 12:09] LABS: BILIRUBIN,TOTAL 0.4 mg/dL (0.2-1)
[2024-03-09 12:15] LABS: TOT PROT 8.4 g/dl (6.4-8.2)
[2024-03-09] MEDS: DIPHENHYDRAMINE 50 MG in SODIUM CHLORIDE 50 ML IVPB ONE (12:17)
[2024-03-09] MEDS: GRANISETRON HCL 1 MG TABLET PO ONE (12:36)
[2024-03-09] MEDS: DEXAMETHASONE SODIUM PHOSPHATE 20 MG in SODIUM CHLORIDE 50 ML IVPB ONE (12:36)
[2024-03-09] MEDS: ACETAMINOPHEN 325 MG TABLET (FP) PO ONE (12:38)
[2024-03-09] MEDS: BORTEZOMIB 2.5 MG/ML SUB-Q INJECTION SQ ONE (12:57)
[2024-03-09 13:54] VITALS: RESP 20; TEMP 98
[2024-03-09 15:06] VITALS: BP 124/68; PULSE 66
[2024-03-10 17:09] LABS: FREE KAPPA,SERUM 3.3 mg/L (3.3-19.4)
== END 2024-03-09 13:45 | disposition home or self-care (01) ==
LOC: JONCCHEMO 10:39 → J7W 10:39 → JONCCHEMO 13:45
PROVIDERS: ATTEND Internal Medicine Hematology & Oncology
PROC: 3E01305 Introduction of Other Antineoplastic into Subcutaneous Tissue, Percutaneous Approach (ICD-10-PCS; principal; 2024-03-09)
PROC: 3E033GC Introduction of Other Therapeutic Substance into Peripheral Vein, Percutaneous Approach (ICD-10-PCS; 2024-03-09)
DX: Z51.11 Encounter for antineoplastic chemotherapy (principal); C90.00 Multiple myeloma not having achieved remission
CPT/HCPCS: 36415; 80048; 80076; 82784; 83883; 85025; J9041

== ENCOUNTER 2024-03-16 10:48 | Day surgery (SDC) | payer OTHER, BC ==
[2024-03-16 11:27] LABS: BASO % 0.1 % (0-2.0); EOS % 0.3 % (0-4.5); HEMOGLOBIN 9.7 GM/dL (11.7-16.9); MCH 31.4 pg (25.7-33.7); MCHC 33.6 g/dl (32.0-35.9); MEAN CELL VOLUME 93.4 fl (80-96); MEAN PLT VOLUME 7.9 fl (7.5-11.1); MONO % 6.9 % (3.8-10.2); NEUT % 74.7 % (42.8-82.8); PLATELET COUNT 177 10^3/uL (134-434); RDW 16.4 % (11.9-15.9)
[2024-03-16 11:46] LABS: CALCIUM 9.2 mg/dL (8.5-10.1); CHLORIDE 107 mmol/L (98-107); POTASSIUM 4.2 mmol/L (3.5-5.1); SODIUM 138 mmol/L (136-145)
[2024-03-16 11:48] LABS: ANION GAP 5 mmol/L (4-13); BLOOD UREA NITROGEN 23.6 mg/dL (7-18); CO2 26 mmol/L (21-32); GLUCOSE,RANDOM 127 mg/dL (74-106)
[2024-03-16 11:51] LABS: CREATININE 1.2 mg/dL (0.55-1.3)
[2024-03-16 12:27] LABS: ALBUMIN 3.4 g/dl (3.4-5.0); BILIRUBIN,DIRECT 0.1 mg/dL (0.0-0.2); BILIRUBIN,TOTAL 0.4 mg/dL (0.2-1); TOT PROT 8.5 g/dl (6.4-8.2)
[2024-03-16] MEDS: GRANISETRON HCL 1 MG TABLET PO ONE (13:07)
[2024-03-16] MEDS: ACETAMINOPHEN 325 MG TABLET (FP) PO ONE (13:07)
[2024-03-16] MEDS: DEXAMETHASONE SODIUM PHOSPHATE 20 MG, DIPHENHYDRAMINE 50 MG in SODIUM CHLORIDE 100 ML IVPB ONE (13:08)
[2024-03-16] MEDS: DARATUMUMAB-HYALURONIDASE-FIHJ (FASPRO) 15 ML VIAL SQ ONE (14:06)
[2024-03-16] MEDS: BORTEZOMIB 2.5 MG/ML SUB-Q INJECTION SQ ONE (14:07)
[2024-03-16 16:05] VITALS: RESP 20; TEMP 97.6
[2024-03-16 16:09] VITALS: BP 128/70; PULSE 60
[2024-03-17 18:07] LABS: FREE KAPPA,SERUM 2.1 mg/L (3.3-19.4)
[2024-03-18 03:06] LABS: IG A QN SERUM. 5 mg/dL (61-437)
[2024-03-18 07:08] LABS: FREE KAP CHN UR 7.4 mg/L (1.17-86.46); KAPPA LAMBDA RATIO URIN 0.31 (1.83-14.26)
== END 2024-03-16 14:30 | disposition home or self-care (01) ==
LOC: JONCCHEMO 10:48 → J7W 10:49 → JONCCHEMO 14:30
PROVIDERS: ATTEND Internal Medicine Hematology & Oncology
PROC: 3E01305 Introduction of Other Antineoplastic into Subcutaneous Tissue, Percutaneous Approach (ICD-10-PCS; principal; 2024-03-16)
PROC: 3E01305 Introduction of Other Antineoplastic into Subcutaneous Tissue, Percutaneous Approach (ICD-10-PCS; 2024-03-16)
PROC: 3E033GC Introduction of Other Therapeutic Substance into Peripheral Vein, Percutaneous Approach (ICD-10-PCS; 2024-03-16)
DX: Z51.11 Encounter for antineoplastic chemotherapy (principal); C90.00 Multiple myeloma not having achieved remission
CPT/HCPCS: 36415; 80048; 80076; 82784; 83883; 85025; 96365; 96401; J9041; J9144

== ENCOUNTER 2024-03-23 10:07 | Day surgery (SDC) | payer OTHER, BC ==
[~2024-03-23 10:07] MED LIST changes: -DARATUMUMAB-HYALURONIDASE-FIHJ (FASPRO) 15 ML VIAL SQ ONE; +DEXAMETHASONE SODIUM PHOSPHATE 20 MG in SODIUM CHLORIDE 50 ML IVPB ONE
[2024-03-23 10:56] LABS: BASO % 0.1 % (0-2.0); EOS % 1.1 % (0-4.5); HEMATOCRIT 28.3 % (35.4-49); HEMOGLOBIN 9.5 GM/dL (11.7-16.9); LYMPH % 27.6 % (8-40); MCH 31.3 pg (25.7-33.7); MCHC 33.7 g/dl (32.0-35.9); MEAN CELL VOLUME 92.8 fl (80-96); MEAN PLT VOLUME 8.2 fl (7.5-11.1); MONO % 9.7 % (3.8-10.2); NEUT % 61.5 % (42.8-82.8); PLATELET COUNT 206 10^3/uL (134-434); RBC 3.04 M/mm3 (4.00-5.60); RDW 16.8 % (11.9-15.9)
[2024-03-23 11:28] LABS: CHLORIDE 107 mmol/L (98-107); POTASSIUM 4.1 mmol/L (3.5-5.1); SODIUM 138 mmol/L (136-145)
[2024-03-23 11:30] LABS: ANION GAP 4 mmol/L (4-13); BLOOD UREA NITROGEN 18.3 mg/dL (7-18); CALCIUM 9.1 mg/dL (8.5-10.1); CO2 27 mmol/L (21-32); GLUCOSE,RANDOM 120 mg/dL (74-106)
[2024-03-23 11:34] LABS: CREATININE 1.3 mg/dL (0.55-1.3)
[2024-03-23] MEDS: DEXAMETHASONE SODIUM PHOSPHATE 20 MG in SODIUM CHLORIDE 50 ML IVPB ONE (11:38)
[2024-03-23] MEDS: GRANISETRON HCL 1 MG TABLET PO ONE (11:38)
[2024-03-23] MEDS: BORTEZOMIB 2.5 MG/ML SUB-Q INJECTION SQ ONE (12:14)
[2024-03-23 13:55] VITALS: RESP 18
[2024-03-23 14:04] VITALS: TEMP 98.4
[2024-03-23 14:05] VITALS: BP 133/58; PULSE 65
== END 2024-03-23 13:00 | disposition home or self-care (01) ==
LOC: JONCCHEMO 10:07 → J7W 10:07 → JONCCHEMO 13:00
PROVIDERS: ATTEND Internal Medicine Hematology & Oncology
PROC: 3E01305 Introduction of Other Antineoplastic into Subcutaneous Tissue, Percutaneous Approach (ICD-10-PCS; principal; 2024-03-23)
PROC: 3E033GC Introduction of Other Therapeutic Substance into Peripheral Vein, Percutaneous Approach (ICD-10-PCS; 2024-03-23)
DX: Z51.11 Encounter for antineoplastic chemotherapy (principal); C90.00 Multiple myeloma not having achieved remission
CPT/HCPCS: 36415; 80048; 85025; 96374; 96401; J9041

== ENCOUNTER 2024-03-30 10:34 | Day surgery (SDC) | payer OTHER, BC ==
[2024-03-30 11:13] LABS: BASO % 0.1 % (0-2.0); EOS % 0.6 % (0-4.5); HEMATOCRIT 28.5 % (35.4-49); HEMOGLOBIN 9.5 GM/dL (11.7-16.9); LYMPH % 20.1 % (8-40); MCHC 33.3 g/dl (32.0-35.9); MEAN CELL VOLUME 93.1 fl (80-96); MEAN PLT VOLUME 8.2 fl (7.5-11.1); MONO % 8.9 % (3.8-10.2); NEUT % 70.3 % (42.8-82.8); PLATELET COUNT 190 10^3/uL (134-434); RBC 3.06 M/mm3 (4.00-5.60); RDW 16.9 % (11.9-15.9); WHITE BLOOD COUNT 3.9 K/mm3 (4.0-10.0)
[2024-03-30 11:32] LABS: CHLORIDE 106 mmol/L (98-107); SODIUM 137 mmol/L (136-145)
[2024-03-30 11:33] LABS: CALCIUM 8.8 mg/dL (8.5-10.1)
[2024-03-30 11:34] LABS: ANION GAP 4 mmol/L (4-13); BLOOD UREA NITROGEN 19.4 mg/dL (7-18); CO2 27 mmol/L (21-32); GLUCOSE,RANDOM 109 mg/dL (74-106)
[2024-03-30 11:37] LABS: CREATININE 1.2 mg/dL (0.55-1.3)
[2024-03-30] MEDS: GRANISETRON HCL 1 MG TABLET PO ONE (12:00)
[2024-03-30] MEDS: ACETAMINOPHEN 325 MG TABLET (FP) PO ONE (12:00)
[2024-03-30] MEDS: DEXAMETHASONE SODIUM PHOSPHATE 20 MG, DIPHENHYDRAMINE 50 MG in SODIUM CHLORIDE 100 ML IVPB ONE (12:00)
[2024-03-30] MEDS: BORTEZOMIB 2.5 MG/ML SUB-Q INJECTION SQ ONE (12:50)
[2024-03-30] MEDS: DARATUMUMAB-HYALURONIDASE-FIHJ (FASPRO) 15 ML VIAL SQ ONE (12:51)
[2024-03-30 14:17] VITALS: TEMP 97.8
[2024-03-30 14:21] VITALS: BP 131/59; PULSE 60; RESP 20
== END 2024-03-30 13:10 | disposition home or self-care (01) ==
LOC: J7W 10:34 → JONCCHEMO 10:34
PROVIDERS: ATTEND Internal Medicine Hematology & Oncology
PROC: 3E01305 Introduction of Other Antineoplastic into Subcutaneous Tissue, Percutaneous Approach (ICD-10-PCS; principal; 2024-03-30)
PROC: 3E01305 Introduction of Other Antineoplastic into Subcutaneous Tissue, Percutaneous Approach (ICD-10-PCS; 2024-03-30)
PROC: 3E033GC Introduction of Other Therapeutic Substance into Peripheral Vein, Percutaneous Approach (ICD-10-PCS; 2024-03-30)
DX: Z51.11 Encounter for antineoplastic chemotherapy (principal); C90.00 Multiple myeloma not having achieved remission
CPT/HCPCS: 36415; 80048; 85025; 96365; 96401; J9041; J9144

== ENCOUNTER 2024-04-06 10:45 | Day surgery (SDC) | payer OTHER, BC ==
[~2024-04-06 10:45] MED LIST changes: +DARATUMUMAB-HYALURONIDASE-FIHJ (FASPRO) 15 ML VIAL SQ ONE; -DEXAMETHASONE SODIUM PHOSPHATE 20 MG in SODIUM CHLORIDE 50 ML IVPB ONE
[2024-04-06 11:09] LABS: BASO % 0.1 % (0-2.0); EOS % 0.8 % (0-4.5); HEMATOCRIT 28.5 % (35.4-49); HEMOGLOBIN 9.4 GM/dL (11.7-16.9); LYMPH % 23.4 % (8-40); MCH 30.7 pg (25.7-33.7); MCHC 32.9 g/dl (32.0-35.9); MEAN CELL VOLUME 93.5 fl (80-96); MEAN PLT VOLUME 8.2 fl (7.5-11.1); MONO % 10.3 % (3.8-10.2); NEUT % 65.4 % (42.8-82.8); PLATELET COUNT 180 10^3/uL (134-434); RBC 3.04 M/mm3 (4.00-5.60); WHITE BLOOD COUNT 3.5 K/mm3 (4.0-10.0)
[2024-04-06 11:28] LABS: POTASSIUM 4.3 mmol/L (3.5-5.1)
[2024-04-06 11:31] LABS: ALBUMIN 3.3 g/dl (3.4-5.0); BLOOD UREA NITROGEN 21.5 mg/dL (7-18); CALCIUM 9.1 mg/dL (8.5-10.1)
[2024-04-06 11:33] LABS: BILIRUBIN,DIRECT 0.1 mg/dL (0.0-0.2); CREATININE 1.2 mg/dL (0.55-1.3)
[2024-04-06 11:36] LABS: BILIRUBIN,TOTAL 0.3 mg/dL (0.2-1); TOT PROT 8.3 g/dl (6.4-8.2)
[2024-04-06] MEDS: DEXAMETHASONE SODIUM PHOSPHATE 20 MG, DIPHENHYDRAMINE 50 MG in SODIUM CHLORIDE 100 ML IVPB ONE (12:09)
[2024-04-06] MEDS: ACETAMINOPHEN 325 MG TABLET (FP) PO ONE (12:09)
[2024-04-06] MEDS: GRANISETRON HCL 1 MG TABLET PO ONE (12:10)
[2024-04-06] MEDS: BORTEZOMIB 2.5 MG/ML SUB-Q INJECTION SQ ONE (12:45)
[2024-04-06 15:45] VITALS: BP 130/57; PULSE 61; RESP 20; TEMP 98.2
[2024-04-07 17:07] LABS: FREE KAPPA,SERUM 1.9 mg/L (3.3-19.4); IG A QN SERUM. <5 mg/dL (61-437)
== END 2024-04-06 13:30 | disposition home or self-care (01) ==
LOC: JONCCHEMO 10:45 → J7W 10:46 → JONCCHEMO 13:30
PROVIDERS: ATTEND Internal Medicine Hematology & Oncology
PROC: 3E01305 Introduction of Other Antineoplastic into Subcutaneous Tissue, Percutaneous Approach (ICD-10-PCS; principal; 2024-04-06)
PROC: 3E033GC Introduction of Other Therapeutic Substance into Peripheral Vein, Percutaneous Approach (ICD-10-PCS; 2024-04-06)
DX: Z51.11 Encounter for antineoplastic chemotherapy (principal); C90.00 Multiple myeloma not having achieved remission
CPT/HCPCS: 36415; 80048; 80076; 82784; 83883; 85025; 96365; 96401; J9041

== ENCOUNTER 2024-04-13 10:31 | Day surgery (SDC) | payer OTHER, BC ==
[2024-04-13 11:12] LABS: BASO % 0.2 % (0-2.0); EOS % 0.5 % (0-4.5); HEMOGLOBIN 9.6 GM/dL (11.7-16.9); LYMPH % 14.6 % (8-40); MCH 31.1 pg (25.7-33.7); MCHC 33.1 g/dl (32.0-35.9); MEAN PLT VOLUME 8.2 fl (7.5-11.1); MONO % 4.4 % (3.8-10.2); NEUT % 80.3 % (42.8-82.8); PLATELET COUNT 197 10^3/uL (134-434); RBC 3.08 M/mm3 (4.00-5.60); WHITE BLOOD COUNT 5.2 K/mm3 (4.0-10.0)
[2024-04-13 11:27] LABS: CHLORIDE 106 mmol/L (98-107); POTASSIUM 4.2 mmol/L (3.5-5.1); SODIUM 136 mmol/L (136-145)
[2024-04-13 11:28] LABS: CALCIUM 9.1 mg/dL (8.5-10.1)
[2024-04-13 11:29] LABS: ANION GAP 4 mmol/L (4-13); CO2 26 mmol/L (21-32); GLUCOSE,RANDOM 114 mg/dL (74-106)
[2024-04-13 11:32] LABS: CREATININE 1.2 mg/dL (0.55-1.3)
[2024-04-13] MEDS: DEXAMETHASONE SODIUM PHOSPHATE 20 MG in SODIUM CHLORIDE 50 ML IVPB ONE (11:56)
[2024-04-13] MEDS: GRANISETRON HCL 1 MG TABLET PO ONE (11:56)
[2024-04-13] MEDS: BORTEZOMIB 2.5 MG/ML SUB-Q INJECTION SQ ONE (12:35)
[2024-04-13 17:40] VITALS: TEMP 97.6
[2024-04-13 17:43] VITALS: BP 133/63; PULSE 65; RESP 20
== END 2024-04-13 12:45 | disposition home or self-care (01) ==
LOC: J7W 10:31 → JONCCHEMO 10:31
PROVIDERS: ATTEND Internal Medicine Hematology & Oncology
DX: Z51.11 Encounter for antineoplastic chemotherapy (principal); C90.00 Multiple myeloma not having achieved remission
CPT/HCPCS: 36415; 80048; 85025; 96374; 96401; J9041

== ENCOUNTER 2024-04-20 10:19 | Day surgery (SDC) | payer OTHER, BC ==
[2024-04-20 11:11] LABS: BASO % 0.1 % (0-2.0); EOS % 1.3 % (0-4.5); HEMATOCRIT 28.2 % (35.4-49); HEMOGLOBIN 9.5 GM/dL (11.7-16.9); LYMPH % 26.7 % (8-40); MCH 31.3 pg (25.7-33.7); MCHC 33.8 g/dl (32.0-35.9); MEAN CELL VOLUME 92.8 fl (80-96); MEAN PLT VOLUME 8.2 fl (7.5-11.1); MONO % 13.3 % (3.8-10.2); NEUT % 58.6 % (42.8-82.8); PLATELET COUNT 194 10^3/uL (134-434); RBC 3.04 M/mm3 (4.00-5.60); RDW 16.9 % (11.9-15.9); WHITE BLOOD COUNT 3.7 K/mm3 (4.0-10.0)
[2024-04-20 11:40] LABS: CHLORIDE 106 mmol/L (98-107); SODIUM 137 mmol/L (136-145)
[2024-04-20 11:41] LABS: CALCIUM 9.1 mg/dL (8.5-10.1)
[2024-04-20 11:42] LABS: ANION GAP 5 mmol/L (4-13); BLOOD UREA NITROGEN 19.4 mg/dL (7-18); CO2 27 mmol/L (21-32); GLUCOSE,RANDOM 103 mg/dL (74-106)
[2024-04-20 11:45] LABS: CREATININE 1.2 mg/dL (0.55-1.3)
[2024-04-20] MEDS: GRANISETRON HCL 1 MG TABLET PO ONE (12:06)
[2024-04-20] MEDS: DEXAMETHASONE SODIUM PHOSPHATE 20 MG, DIPHENHYDRAMINE 50 MG in SODIUM CHLORIDE 100 ML IVPB ONE (12:06)
[2024-04-20] MEDS ORDERED: ACETAMINOPHEN 325 MG TABLET (FP) ONE (12:06)
[2024-04-20] MEDS: ACETAMINOPHEN 325 MG TABLET (FP) PO ONE (12:07)
[2024-04-20] MEDS: BORTEZOMIB 2.5 MG/ML SUB-Q INJECTION SQ ONE (12:42)
[2024-04-20] MEDS: DARATUMUMAB-HYALURONIDASE-FIHJ (FASPRO) 15 ML VIAL SQ ONE (12:44)
[2024-04-20 14:38] VITALS: BP 139/52; PULSE 67; RESP 20; TEMP 97.7
== END 2024-04-20 13:05 | disposition home or self-care (01) ==
LOC: JONCCHEMO 10:19 → J7W 10:22 → JONCCHEMO 13:05
PROVIDERS: ATTEND Internal Medicine Hematology & Oncology
PROC: 3E033GC Introduction of Other Therapeutic Substance into Peripheral Vein, Percutaneous Approach (ICD-10-PCS; principal; 2024-04-20)
PROC: 3E01305 Introduction of Other Antineoplastic into Subcutaneous Tissue, Percutaneous Approach (ICD-10-PCS; 2024-04-20)
PROC: 3E01305 Introduction of Other Antineoplastic into Subcutaneous Tissue, Percutaneous Approach (ICD-10-PCS; 2024-04-20)
DX: Z51.11 Encounter for antineoplastic chemotherapy (principal); C90.00 Multiple myeloma not having achieved remission
CPT/HCPCS: 36415; 80048; 85025; 96365; 96401; J9041; J9144

== ENCOUNTER 2024-04-27 10:32 | Day surgery (SDC) | payer OTHER, BC ==
[2024-04-27 11:03] LABS: BASO % 0.1 % (0-2.0); EOS % 0.5 % (0-4.5); HEMOGLOBIN 9.3 GM/dL (11.7-16.9); LYMPH % 16.6 % (8-40); MCHC 33.1 g/dl (32.0-35.9); MEAN CELL VOLUME 93.6 fl (80-96); MEAN PLT VOLUME 8.1 fl (7.5-11.1); MONO % 6.8 % (3.8-10.2); PLATELET COUNT 214 10^3/uL (134-434); RBC 2.99 M/mm3 (4.00-5.60); RDW 17.1 % (11.9-15.9); WHITE BLOOD COUNT 3.9 K/mm3 (4.0-10.0)
[2024-04-27 11:28] LABS: CHLORIDE 106 mmol/L (98-107); POTASSIUM 4.4 mmol/L (3.5-5.1); SODIUM 138 mmol/L (136-145)
[2024-04-27 11:32] LABS: CALCIUM 9.2 mg/dL (8.5-10.1)
[2024-04-27 11:33] LABS: ALBUMIN 3.3 g/dl (3.4-5.0); ANION GAP 7 mmol/L (4-13); BLOOD UREA NITROGEN 17.1 mg/dL (7-18); CO2 25 mmol/L (21-32); GLUCOSE,RANDOM 131 mg/dL (74-106)
[2024-04-27 11:35] LABS: BILIRUBIN,DIRECT 0.1 mg/dL (0.0-0.2)
[2024-04-27 11:37] LABS: BILIRUBIN,TOTAL 0.4 mg/dL (0.2-1); CREATININE 1.2 mg/dL (0.55-1.3); SGOT/AST 18 U/L (15-37); SGPT/ALT 26 U/L (13-61); TOT PROT 8.8 g/dl (6.4-8.2)
[2024-04-27 11:39] LABS: ALK PHOS 109 U/L (45-117)
[2024-04-27] MEDS: ACETAMINOPHEN 325 MG TABLET (FP) PO ONE (11:51)
[2024-04-27] MEDS: GRANISETRON HCL 1 MG TABLET PO ONE (11:51)
[2024-04-27] MEDS: DEXAMETHASONE SODIUM PHOSPHATE 20 MG, DIPHENHYDRAMINE 50 MG in SODIUM CHLORIDE 100 ML IVPB ONE (11:52)
[2024-04-27] MEDS: BORTEZOMIB 2.5 MG/ML SUB-Q INJECTION SQ ONE (12:26)
[2024-04-27 15:48] VITALS: BP 123/58; PULSE 59; RESP 20; TEMP 98.4
[2024-04-28 18:10] LABS: FREE KAPPA,SERUM 1.7 mg/L (3.3-19.4)
[2024-04-29 01:08] LABS: IG A QN SERUM. <5 mg/dL (61-437)
== END 2024-04-27 12:45 | disposition home or self-care (01) ==
LOC: JONCCHEMO 10:32 → J7W 10:33 → JONCCHEMO 12:45
PROVIDERS: ATTEND Internal Medicine Hematology & Oncology
PROC: 3E033GC Introduction of Other Therapeutic Substance into Peripheral Vein, Percutaneous Approach (ICD-10-PCS; principal; 2024-04-27)
PROC: 3E01305 Introduction of Other Antineoplastic into Subcutaneous Tissue, Percutaneous Approach (ICD-10-PCS; 2024-04-27)
DX: Z51.11 Encounter for antineoplastic chemotherapy (principal); C90.00 Multiple myeloma not having achieved remission
CPT/HCPCS: 36415; 80048; 80076; 82784; 83883; 85025; 96365; 96401; J9041

== ENCOUNTER 2024-05-04 10:44 | Day surgery (SDC) | payer OTHER, BC ==
[2024-05-04 11:21] LABS: BASO % 0.1 % (0-2.0); EOS % 0.8 % (0-4.5); HEMATOCRIT 27.7 % (35.4-49); HEMOGLOBIN 9.1 GM/dL (11.7-16.9); LYMPH % 22.6 % (8-40); MCH 30.9 pg (25.7-33.7); MCHC 32.9 g/dl (32.0-35.9); MEAN CELL VOLUME 93.9 fl (80-96); MONO % 11.4 % (3.8-10.2); NEUT % 65.1 % (42.8-82.8); PLATELET COUNT 185 10^3/uL (134-434); RBC 2.95 M/mm3 (4.00-5.60); RDW 17.4 % (11.9-15.9); WHITE BLOOD COUNT 3.4 K/mm3 (4.0-10.0)
[2024-05-04 12:07] LABS: ALBUMIN 3.3 g/dl (3.4-5.0); BLOOD UREA NITROGEN 15.5 mg/dL (7-18); CALCIUM 8.9 mg/dL (8.5-10.1)
[2024-05-04 12:09] LABS: BILIRUBIN,DIRECT 0.1 mg/dL (0.0-0.2); CREATININE 1.2 mg/dL (0.55-1.3)
[2024-05-04 12:12] LABS: BILIRUBIN,TOTAL 0.3 mg/dL (0.2-1); TOT PROT 8.4 g/dl (6.4-8.2)
[2024-05-04] MEDS: ACETAMINOPHEN 325 MG TABLET (FP) PO ONE (12:25)
[2024-05-04] MEDS: GRANISETRON HCL 1 MG TABLET PO ONE (12:25)
[2024-05-04] MEDS: DEXAMETHASONE SODIUM PHOSPHATE 20 MG, DIPHENHYDRAMINE 50 MG in SODIUM CHLORIDE 100 ML IVPB ONE (13:14)
[2024-05-04] MEDS: BORTEZOMIB 2.5 MG/ML SUB-Q INJECTION SQ ONE (13:52)
[2024-05-04] MEDS: DARATUMUMAB-HYALURONIDASE-FIHJ (FASPRO) 15 ML VIAL SQ ONE (13:59)
[2024-05-04 14:28] VITALS: BP 124/53; PULSE 57; RESP 20; TEMP 97.8
[2024-05-05 18:12] LABS: FREE KAPPA,SERUM 1.8 mg/L (3.3-19.4); IG A QN SERUM. <5 mg/dL (61-437)
== END 2024-05-04 14:30 | disposition home or self-care (01) ==
LOC: J7W 10:44 → JONCCHEMO 10:44
PROVIDERS: ATTEND Internal Medicine Hematology & Oncology
PROC: 3E01305 Introduction of Other Antineoplastic into Subcutaneous Tissue, Percutaneous Approach (ICD-10-PCS; principal; 2024-05-04)
PROC: 3E01305 Introduction of Other Antineoplastic into Subcutaneous Tissue, Percutaneous Approach (ICD-10-PCS; 2024-05-04)
PROC: 3E033GC Introduction of Other Therapeutic Substance into Peripheral Vein, Percutaneous Approach (ICD-10-PCS; 2024-05-04)
DX: Z51.11 Encounter for antineoplastic chemotherapy (principal); C90.00 Multiple myeloma not having achieved remission
CPT/HCPCS: 36415; 80048; 80076; 82784; 83883; 85025; 96365; 96401; J9041; J9144

== ENCOUNTER 2024-05-11 10:56 | Day surgery (SDC) | payer OTHER, BC ==
[2024-05-11 11:50] LABS: BASO % 0.1 % (0-2.0); EOS % 0.8 % (0-4.5); HEMATOCRIT 26.4 % (35.4-49); HEMOGLOBIN 9.2 GM/dL (11.7-16.9); LYMPH % 22.7 % (8-40); MCH 32.1 pg (25.7-33.7); MCHC 34.6 g/dl (32.0-35.9); MEAN CELL VOLUME 92.8 fl (80-96); MONO % 7.7 % (3.8-10.2); NEUT % 68.7 % (42.8-82.8); PLATELET COUNT 182 10^3/uL (134-434); RBC 2.85 M/mm3 (4.00-5.60); RDW 17.6 % (11.9-15.9); WHITE BLOOD COUNT 3.6 K/mm3 (4.0-10.0)
[2024-05-11 11:57] LABS: POTASSIUM 4.1 mmol/L (3.5-5.1)
[2024-05-11 11:58] LABS: CALCIUM 9.3 mg/dL (8.5-10.1)
[2024-05-11 12:00] LABS: ALBUMIN 3.4 g/dl (3.4-5.0)
[2024-05-11 12:02] LABS: CREATININE 1.3 mg/dL (0.55-1.3)
[2024-05-11 12:03] LABS: BILIRUBIN,DIRECT 0.2 mg/dL (0.0-0.2)
[2024-05-11 12:05] LABS: BILIRUBIN,TOTAL 0.3 mg/dL (0.2-1); TOT PROT 8.8 g/dl (6.4-8.2)
[2024-05-11] MEDS: ACETAMINOPHEN 325 MG TABLET (FP) PO ONE (12:35)
[2024-05-11] MEDS: DEXAMETHASONE INJECTION 20 MG, DIPHENHYDRAMINE 50 MG in SODIUM CHLORIDE 100 ML IVPB ONE (12:35)
[2024-05-11] MEDS: GRANISETRON HCL 1 MG TABLET PO ONE (12:36)
[2024-05-11] MEDS: BORTEZOMIB 2.5 MG/ML SUB-Q INJECTION SQ ONE (13:11)
[2024-05-11 13:55] VITALS: BP 124/60; PULSE 58; RESP 20; TEMP 97.8
== END 2024-05-11 13:30 | disposition home or self-care (01) ==
LOC: JONCCHEMO 10:56 → J7W 10:58 → JONCCHEMO 13:30
PROVIDERS: ATTEND Internal Medicine Hematology & Oncology
PROC: 3E01305 Introduction of Other Antineoplastic into Subcutaneous Tissue, Percutaneous Approach (ICD-10-PCS; principal; 2024-05-11)
PROC: 3E033GC Introduction of Other Therapeutic Substance into Peripheral Vein, Percutaneous Approach (ICD-10-PCS; 2024-05-11)
DX: Z51.11 Encounter for antineoplastic chemotherapy (principal); C90.00 Multiple myeloma not having achieved remission
CPT/HCPCS: 36415; 80048; 80076; 85025; 96365; 96401; J1100; J9041

== ENCOUNTER 2024-05-18 10:36 | Day surgery (SDC) | payer OTHER, BC ==
[~2024-05-18 10:36] MED LIST changes: -DARATUMUMAB-HYALURONIDASE-FIHJ (FASPRO) 15 ML VIAL SQ ONE; +GRANISETRON HCL 1 MG TABLET PO ONE
[2024-05-18 11:08] LABS: BASO % 0.1 % (0-2.0); EOS % 0.6 % (0-4.5); HEMATOCRIT 26.4 % (35.4-49); LYMPH % 18.7 % (8-40); MCH 31.8 pg (25.7-33.7); MCHC 34.3 g/dl (32.0-35.9); MEAN CELL VOLUME 92.8 fl (80-96); MEAN PLT VOLUME 7.7 fl (7.5-11.1); MONO % 9.6 % (3.8-10.2); PLATELET COUNT 214 10^3/uL (134-434); RBC 2.84 M/mm3 (4.00-5.60); RDW 17.9 % (11.9-15.9); WHITE BLOOD COUNT 3.5 K/mm3 (4.0-10.0)
[2024-05-18 11:35] LABS: CHLORIDE 107 mmol/L (98-107); POTASSIUM 4.1 mmol/L (3.5-5.1); SODIUM 137 mmol/L (136-145)
[2024-05-18 11:37] LABS: ALBUMIN 3.3 g/dl (3.4-5.0); ANION GAP 6 mmol/L (4-13); BLOOD UREA NITROGEN 19.6 mg/dL (7-18); CALCIUM 9.3 mg/dL (8.5-10.1); CO2 25 mmol/L (21-32); GLUCOSE,RANDOM 119 mg/dL (74-106)
[2024-05-18 11:40] LABS: BILIRUBIN,DIRECT 0.1 mg/dL (0.0-0.2); CREATININE 1.2 mg/dL (0.55-1.3); SGOT/AST 23 U/L (15-37); SGPT/ALT 26 U/L (13-61)
[2024-05-18 11:42] LABS: BILIRUBIN,TOTAL 0.3 mg/dL (0.2-1); TOT PROT 8.5 g/dl (6.4-8.2)
[2024-05-18 11:43] LABS: ALK PHOS 96 U/L (45-117)
[2024-05-18] MEDS: DEXAMETHASONE SODIUM PHOSPHATE 20 MG, DIPHENHYDRAMINE 50 MG in SODIUM CHLORIDE 100 ML IVPB ONE (12:05)
[2024-05-18] MEDS: GRANISETRON HCL 1 MG TABLET PO ONE (12:07)
[2024-05-18] MEDS: ACETAMINOPHEN 325 MG TABLET (FP) PO ONE (12:07)
[2024-05-18] MEDS: DARATUMUMAB-HYALURONIDASE-FIHJ (FASPRO) 15 ML VIAL SQ ONE (12:44)
[2024-05-18] MEDS: BORTEZOMIB 2.5 MG/ML SUB-Q INJECTION SQ ONE (12:45)
[2024-05-18 14:52] VITALS: BP 118/55; PULSE 61; RESP 20; TEMP 98.4
[2024-05-19 16:08] LABS: FREE KAPPA,SERUM 1.6 mg/L (3.3-19.4)
[2024-05-20 08:11] LABS: IG A QN SERUM. 7 mg/dL (61-437)
== END 2024-05-18 13:00 | disposition home or self-care (01) ==
LOC: JONCCHEMO 10:36 → J7W 10:37 → JONCCHEMO 13:00
PROVIDERS: ATTEND Internal Medicine Hematology & Oncology
PROC: 3E01305 Introduction of Other Antineoplastic into Subcutaneous Tissue, Percutaneous Approach (ICD-10-PCS; principal; 2024-05-18)
PROC: 3E01305 Introduction of Other Antineoplastic into Subcutaneous Tissue, Percutaneous Approach (ICD-10-PCS; 2024-05-18)
PROC: 3E033GC Introduction of Other Therapeutic Substance into Peripheral Vein, Percutaneous Approach (ICD-10-PCS; 2024-05-18)
DX: Z51.11 Encounter for antineoplastic chemotherapy (principal); C90.00 Multiple myeloma not having achieved remission
CPT/HCPCS: 36415; 80048; 80076; 82784; 83883; 85025; 96365; 96401; J9041; J9144

== ENCOUNTER 2024-05-25 10:14 | Day surgery (SDC) | payer OTHER, BC ==
[2024-05-25 11:09] LABS: BASO % 0.2 % (0-2.0); EOS % 1.2 % (0-4.5); HEMOGLOBIN 9.2 GM/dL (11.7-16.9); LYMPH % 25.4 % (8-40); MCH 32.3 pg (25.7-33.7); MCHC 34.2 g/dl (32.0-35.9); MEAN CELL VOLUME 94.6 fl (80-96); MONO % 13.7 % (3.8-10.2); NEUT % 59.5 % (42.8-82.8); PLATELET COUNT 209 10^3/uL (134-434); RBC 2.85 M/mm3 (4.00-5.60); RDW 17.8 % (11.9-15.9); WHITE BLOOD COUNT 3.3 K/mm3 (4.0-10.0)
[2024-05-25 11:20] LABS: CHLORIDE 106 mmol/L (98-107); POTASSIUM 4.1 mmol/L (3.5-5.1); SODIUM 136 mmol/L (136-145)
[2024-05-25 11:22] LABS: CALCIUM 9.6 mg/dL (8.5-10.1)
[2024-05-25 11:23] LABS: ALBUMIN 3.3 g/dl (3.4-5.0); ANION GAP 5 mmol/L (4-13); BLOOD UREA NITROGEN 19.1 mg/dL (7-18); CO2 25 mmol/L (21-32); GLUCOSE,RANDOM 127 mg/dL (74-106)
[2024-05-25 11:25] LABS: BILIRUBIN,DIRECT 0.2 mg/dL (0.0-0.2)
[2024-05-25 11:26] LABS: CREATININE 1.3 mg/dL (0.55-1.3); SGOT/AST 18 U/L (15-37); SGPT/ALT 26 U/L (13-61)
[2024-05-25 11:27] LABS: BILIRUBIN,TOTAL 0.4 mg/dL (0.2-1); TOT PROT 8.9 g/dl (6.4-8.2)
[2024-05-25 11:28] LABS: ALK PHOS 102 U/L (45-117)
[2024-05-25] MEDS: DEXAMETHASONE SODIUM PHOSPHATE 20 MG in SODIUM CHLORIDE 50 ML IVPB ONE (11:36)
[2024-05-25] MEDS: GRANISETRON HCL 1 MG TABLET PO ONE (11:36)
[2024-05-25] MEDS: BORTEZOMIB 2.5 MG/ML SUB-Q INJECTION SQ ONE (12:22)
[2024-05-25 15:25] VITALS: BP 123/55; PULSE 60; RESP 20; TEMP 98.3
== END 2024-05-25 12:35 | disposition home or self-care (01) ==
LOC: JONCCHEMO 10:14 → J7W 10:15 → JONCCHEMO 12:35
PROVIDERS: ATTEND Internal Medicine Hematology & Oncology
PROC: 3E033GC Introduction of Other Therapeutic Substance into Peripheral Vein, Percutaneous Approach (ICD-10-PCS; principal; 2024-05-25)
PROC: 3E01305 Introduction of Other Antineoplastic into Subcutaneous Tissue, Percutaneous Approach (ICD-10-PCS; 2024-05-25)
DX: Z51.11 Encounter for antineoplastic chemotherapy (principal); C90.00 Multiple myeloma not having achieved remission
CPT/HCPCS: 36415; 80048; 80076; 85025; 96374; 96401; J9041

== ENCOUNTER 2024-06-01 10:21 | Day surgery (SDC) | payer OTHER, BC ==
[2024-06-01 10:34] LABS: BASO % 0.2 % (0-2.0); EOS % 0.7 % (0-4.5); HEMOGLOBIN 9.2 GM/dL (11.7-16.9); LYMPH % 19.1 % (8-40); MCH 32.2 pg (25.7-33.7); MEAN CELL VOLUME 94.8 fl (80-96); MEAN PLT VOLUME 7.9 fl (7.5-11.1); MONO % 8.5 % (3.8-10.2); NEUT % 71.5 % (42.8-82.8); PLATELET COUNT 184 10^3/uL (134-434); RBC 2.84 M/mm3 (4.00-5.60); RDW 17.8 % (11.9-15.9); WHITE BLOOD COUNT 3.8 K/mm3 (4.0-10.0)
[2024-06-01 10:57] LABS: CHLORIDE 107 mmol/L (98-107); POTASSIUM 4.1 mmol/L (3.5-5.1); SODIUM 138 mmol/L (136-145)
[2024-06-01 10:59] LABS: ALBUMIN 3.2 g/dl (3.4-5.0); ANION GAP 6 mmol/L (4-13); BLOOD UREA NITROGEN 15.3 mg/dL (7-18); CALCIUM 9.1 mg/dL (8.5-10.1); CO2 26 mmol/L (21-32); GLUCOSE,RANDOM 111 mg/dL (74-106)
[2024-06-01 11:02] LABS: BILIRUBIN,DIRECT 0.1 mg/dL (0.0-0.2); CREATININE 1.2 mg/dL (0.55-1.3); SGOT/AST 19 U/L (15-37); SGPT/ALT 24 U/L (13-61)
[2024-06-01 11:04] LABS: BILIRUBIN,TOTAL 0.4 mg/dL (0.2-1); TOT PROT 8.8 g/dl (6.4-8.2)
[2024-06-01 11:06] LABS: ALK PHOS 100 U/L (45-117)
[2024-06-01] MEDS: ACETAMINOPHEN 325 MG TABLET (FP) PO ONE (11:32)
[2024-06-01] MEDS: GRANISETRON HCL 1 MG TABLET PO ONE (11:32)
[2024-06-01] MEDS: DEXAMETHASONE SODIUM PHOSPHATE 20 MG, DIPHENHYDRAMINE 50 MG in SODIUM CHLORIDE 100 ML IVPB ONE (11:33)
[2024-06-01] MEDS: BORTEZOMIB 2.5 MG/ML SUB-Q INJECTION SQ ONE (12:19)
[2024-06-01 16:20] VITALS: BP 119/54; PULSE 57; RESP 20; TEMP 98.4
== END 2024-06-01 12:55 | disposition home or self-care (01) ==
LOC: JONCCHEMO 10:21 → J7W 10:21 → JONCCHEMO 12:55
PROVIDERS: ATTEND Internal Medicine Hematology & Oncology
PROC: 3E033GC Introduction of Other Therapeutic Substance into Peripheral Vein, Percutaneous Approach (ICD-10-PCS; principal; 2024-06-01)
PROC: 3E01305 Introduction of Other Antineoplastic into Subcutaneous Tissue, Percutaneous Approach (ICD-10-PCS; 2024-06-01)
DX: Z12.11 Encounter for screening for malignant neoplasm of colon (principal); C90.00 Multiple myeloma not having achieved remission
CPT/HCPCS: 36415; 80048; 80076; 85025; 96365; 96401; J9041

== ENCOUNTER 2024-06-08 10:15 | Day surgery (SDC) | payer OTHER, BC ==
[2024-06-08 11:29] LABS: BASO % 0.1 % (0-2.0); EOS % 0.9 % (0-4.5); HEMATOCRIT 26.1 % (35.4-49); HEMOGLOBIN 8.9 GM/dL (11.7-16.9); LYMPH % 18.2 % (8-40); MCH 32.5 pg (25.7-33.7); MCHC 34.1 g/dl (32.0-35.9); MEAN CELL VOLUME 95.5 fl (80-96); MEAN PLT VOLUME 7.7 fl (7.5-11.1); MONO % 7.4 % (3.8-10.2); NEUT % 73.4 % (42.8-82.8); PLATELET COUNT 211 10^3/uL (134-434); RBC 2.73 M/mm3 (4.00-5.60); RDW 17.5 % (11.9-15.9); WHITE BLOOD COUNT 3.8 K/mm3 (4.0-10.0)
[2024-06-08 11:50] LABS: CHLORIDE 105 mmol/L (98-107); POTASSIUM 4.1 mmol/L (3.5-5.1); SODIUM 137 mmol/L (136-145)
[2024-06-08 11:53] LABS: ALBUMIN 3.2 g/dl (3.4-5.0); ANION GAP 6 mmol/L (4-13); BLOOD UREA NITROGEN 17.3 mg/dL (7-18); CALCIUM 9.4 mg/dL (8.5-10.1); CO2 26 mmol/L (21-32); GLUCOSE,RANDOM 103 mg/dL (74-106)
[2024-06-08 11:55] LABS: BILIRUBIN,DIRECT 0.2 mg/dL (0.0-0.2); SGOT/AST 16 U/L (15-37); SGPT/ALT 25 U/L (13-61)
[2024-06-08 11:57] LABS: BILIRUBIN,TOTAL 0.4 mg/dL (0.2-1); CREATININE 1.3 mg/dL (0.55-1.3); TOT PROT 9.1 g/dl (6.4-8.2)
[2024-06-08 11:58] LABS: ALK PHOS 104 U/L (45-117)
[2024-06-08] MEDS: GRANISETRON HCL 1 MG TABLET PO ONE (12:47)
[2024-06-08] MEDS: ACETAMINOPHEN 325 MG TABLET (FP) PO ONE (12:47)
[2024-06-08] MEDS: DEXAMETHASONE SODIUM PHOSPHATE 20 MG, DIPHENHYDRAMINE 50 MG in SODIUM CHLORIDE 100 ML IVPB ONE (12:52)
[2024-06-08] MEDS: BORTEZOMIB 2.5 MG/ML SUB-Q INJECTION SQ ONE (13:32)
[2024-06-08 18:49] VITALS: BP 134/62; PULSE 55; RESP 20; TEMP 98
[2024-06-09 17:08] LABS: FREE KAPPA,SERUM 1.6 mg/L (3.3-19.4)
[2024-06-10 19:06] LABS: IG A QN SERUM. <5 mg/dL (61-437)
== END 2024-06-08 13:45 | disposition home or self-care (01) ==
LOC: JONCCHEMO 10:15 → J7W 10:15 → JONCCHEMO 13:45
PROVIDERS: ATTEND Internal Medicine Hematology & Oncology
PROC: 3E033GC Introduction of Other Therapeutic Substance into Peripheral Vein, Percutaneous Approach (ICD-10-PCS; principal; 2024-06-08)
PROC: 3E01305 Introduction of Other Antineoplastic into Subcutaneous Tissue, Percutaneous Approach (ICD-10-PCS; 2024-06-08)
DX: Z51.11 Encounter for antineoplastic chemotherapy (principal); C90.00 Multiple myeloma not having achieved remission
CPT/HCPCS: 36415; 80048; 80076; 82784; 83883; 85025; 96365; 96401; J9041

== ENCOUNTER 2024-06-15 10:41 | Day surgery (SDC) | payer OTHER, BC ==
[2024-06-15 11:12] LABS: HEMATOCRIT 26.4 % (35.4-49); MCH 32.3 pg (25.7-33.7); MCHC 34.2 g/dl (32.0-35.9); MEAN CELL VOLUME 94.4 fl (80-96); MEAN PLT VOLUME 7.5 fl (7.5-11.1); PLATELET COUNT 218 10^3/uL (134-434); RDW 17.2 % (11.9-15.9); WHITE BLOOD COUNT 3.4 K/mm3 (4.0-10.0)
[2024-06-15 11:43] LABS: CHLORIDE 106 mmol/L (98-107); SODIUM 138 mmol/L (136-145)
[2024-06-15 11:46] LABS: ALBUMIN 3.3 g/dl (3.4-5.0); ANION GAP 5 mmol/L (4-13); BLOOD UREA NITROGEN 17.3 mg/dL (7-18); CALCIUM 9.9 mg/dL (8.5-10.1); CO2 26 mmol/L (21-32); GLUCOSE,RANDOM 100 mg/dL (74-106)
[2024-06-15 11:47] LABS: ANISOCYTOSIS 0; HELMET CELLS 0; HOWELL-JOLLY BODIES 0; MACROCYTOSIS 0; OVALOCYTE 0; ROULEAU 0; SICKELED CELLS 0; TARGET CELLS 0; TEAR DROP CELLS 0; TOXIC GRANULATION 0
[2024-06-15 11:49] LABS: BILIRUBIN,DIRECT 0.1 mg/dL (0.0-0.2); CREATININE 1.2 mg/dL (0.55-1.3); SGOT/AST 17 U/L (15-37); SGPT/ALT 26 U/L (13-61)
[2024-06-15 11:50] LABS: BILIRUBIN,TOTAL 0.4 mg/dL (0.2-1)
[2024-06-15 11:51] LABS: TOT PROT 9.1 g/dl (6.4-8.2)
[2024-06-15 11:52] LABS: ALK PHOS 98 U/L (45-117)
[2024-06-15] MEDS: DEXAMETHASONE SODIUM PHOSPHATE 20 MG in SODIUM CHLORIDE 50 ML IVPB ONE (12:13)
[2024-06-15] MEDS: GRANISETRON HCL 1 MG TABLET PO ONE (12:13)
[2024-06-15] MEDS: ACETAMINOPHEN 325 MG TABLET (FP) PO ONE (12:30)
[2024-06-15] MEDS: DIPHENHYDRAMINE 50 MG in SODIUM CHLORIDE 50 ML IVPB ONE (12:35)
[2024-06-15] MEDS: BORTEZOMIB 2.5 MG/ML SUB-Q INJECTION SQ ONE (13:13)
[2024-06-15] MEDS: DARATUMUMAB-HYALURONIDASE-FIHJ (FASPRO) 15 ML VIAL SQ ONE (13:14)
[2024-06-15 14:50] VITALS: RESP 20; TEMP 97.9
[2024-06-15 14:56] VITALS: BP 124/55; PULSE 58
== END 2024-06-15 13:50 | disposition home or self-care (01) ==
LOC: JONCCHEMO 10:41 → J7W 10:42 → JONCCHEMO 13:50
PROVIDERS: ATTEND Internal Medicine Hematology & Oncology
PROC: 3E033GC Introduction of Other Therapeutic Substance into Peripheral Vein, Percutaneous Approach (ICD-10-PCS; principal; 2024-06-15)
PROC: 3E01305 Introduction of Other Antineoplastic into Subcutaneous Tissue, Percutaneous Approach (ICD-10-PCS; 2024-06-15)
PROC: 3E01305 Introduction of Other Antineoplastic into Subcutaneous Tissue, Percutaneous Approach (ICD-10-PCS; 2024-06-15)
DX: Z51.11 Encounter for antineoplastic chemotherapy (principal); C90.00 Multiple myeloma not having achieved remission
CPT/HCPCS: 36415; 80048; 80076; 85025; 96374; 96375; 96401; J9041; J9144

== ENCOUNTER 2024-06-22 10:32 | Day surgery (SDC) | payer OTHER, BC ==
[2024-06-22 11:02] LABS: BASO % 0.2 % (0-2.0); EOS % 0.8 % (0-4.5); HEMATOCRIT 26.4 % (35.4-49); HEMOGLOBIN 8.9 GM/dL (11.7-16.9); MCH 32.5 pg (25.7-33.7); MCHC 33.6 g/dl (32.0-35.9); MEAN CELL VOLUME 96.8 fl (80-96); MONO % 6.6 % (3.8-10.2); NEUT % 70.4 % (42.8-82.8); PLATELET COUNT 183 10^3/uL (134-434); RBC 2.73 M/mm3 (4.00-5.60); RDW 16.8 % (11.9-15.9); WHITE BLOOD COUNT 3.5 K/mm3 (4.0-10.0)
[2024-06-22 11:23] LABS: ALBUMIN 3.2 g/dl (3.4-5.0)
[2024-06-22 11:26] LABS: BILIRUBIN,DIRECT 0.2 mg/dL (0.0-0.2)
[2024-06-22 11:28] LABS: BILIRUBIN,TOTAL 0.4 mg/dL (0.2-1); TOT PROT 9.2 g/dl (6.4-8.2)
[2024-06-22 11:34] LABS: CHLORIDE 105 mmol/L (98-107); SODIUM 138 mmol/L (136-145)
[2024-06-22 11:35] LABS: ANION GAP 4 mmol/L (4-13); BLOOD UREA NITROGEN 20.5 mg/dL (7-18); CALCIUM 9.6 mg/dL (8.5-10.1); CO2 29 mmol/L (21-32); GLUCOSE,RANDOM 112 mg/dL (74-106)
[2024-06-22 11:39] LABS: CREATININE 1.2 mg/dL (0.55-1.3)
[2024-06-22] MEDS: GRANISETRON HCL 1 MG TABLET PO ONE (12:15)
[2024-06-22] MEDS: ACETAMINOPHEN 325 MG TABLET (FP) PO ONE (12:15)
[2024-06-22] MEDS: DEXAMETHASONE SODIUM PHOSPHATE 20 MG, DIPHENHYDRAMINE 50 MG in SODIUM CHLORIDE 100 ML IVPB ONE (12:15)
[2024-06-22] MEDS: BORTEZOMIB 2.5 MG/ML SUB-Q INJECTION SQ ONE (12:58)
[2024-06-22 17:06] VITALS: PULSE 57; RESP 20; TEMP 98.4
[2024-06-23 07:50] VITALS: BP 132/65
== END 2024-06-22 13:30 | disposition home or self-care (01) ==
LOC: JONCCHEMO 10:32 → J7W 10:32 → JONCCHEMO 13:30
PROVIDERS: ATTEND Internal Medicine Hematology & Oncology
PROC: 3E01305 Introduction of Other Antineoplastic into Subcutaneous Tissue, Percutaneous Approach (ICD-10-PCS; principal; 2024-06-22)
PROC: 3E033GC Introduction of Other Therapeutic Substance into Peripheral Vein, Percutaneous Approach (ICD-10-PCS; 2024-06-22)
DX: Z51.11 Encounter for antineoplastic chemotherapy (principal); C90.00 Multiple myeloma not having achieved remission
CPT/HCPCS: 36415; 80048; 80076; 85025; 96365; 96401; J9041

== ENCOUNTER 2024-06-29 10:10 | Day surgery (SDC) | payer OTHER, BC ==
[2024-06-29 10:39] LABS: BASO % 0.1 % (0-2.0); EOS % 0.9 % (0-4.5); HEMATOCRIT 25.2 % (35.4-49); HEMOGLOBIN 8.5 GM/dL (11.7-16.9); LYMPH % 24.1 % (8-40); MCH 32.3 pg (25.7-33.7); MCHC 33.7 g/dl (32.0-35.9); MEAN CELL VOLUME 95.9 fl (80-96); MEAN PLT VOLUME 7.7 fl (7.5-11.1); MONO % 8.9 % (3.8-10.2); PLATELET COUNT 188 10^3/uL (134-434); RBC 2.63 M/mm3 (4.00-5.60); WHITE BLOOD COUNT 2.9 K/mm3 (4.0-10.0)
[2024-06-29 11:08] LABS: POTASSIUM 4.2 mmol/L (3.5-5.1)
[2024-06-29 11:10] LABS: ALBUMIN 3.3 g/dl (3.4-5.0)
[2024-06-29 11:11] LABS: BLOOD UREA NITROGEN 17.9 mg/dL (7-18); CALCIUM 9.9 mg/dL (8.5-10.1)
[2024-06-29 11:13] LABS: BILIRUBIN,DIRECT 0.1 mg/dL (0.0-0.2)
[2024-06-29 11:14] LABS: CREATININE 1.2 mg/dL (0.55-1.3)
[2024-06-29 11:15] LABS: BILIRUBIN,TOTAL 0.4 mg/dL (0.2-1); TOT PROT 9.1 g/dl (6.4-8.2)
[2024-06-29] MEDS: DEXAMETHASONE SODIUM PHOSPHATE 20 MG, DIPHENHYDRAMINE 50 MG in SODIUM CHLORIDE 100 ML IVPB ONE (11:41)
[2024-06-29] MEDS: ACETAMINOPHEN 325 MG TABLET (FP) PO ONE (11:41)
[2024-06-29] MEDS: GRANISETRON HCL 1 MG TABLET PO ONE (11:41)
[2024-06-29] MEDS: BORTEZOMIB 2.5 MG/ML SUB-Q INJECTION SQ ONE (12:24)
[2024-06-29 13:16] VITALS: BP 133/61; PULSE 59; RESP 20; TEMP 97.7
[2024-06-30 17:07] LABS: IG A QN SERUM. <5 mg/dL (61-437)
[2024-06-30 18:08] LABS: FREE KAPPA,SERUM 1.5 mg/L (3.3-19.4)
== END 2024-06-29 12:50 | disposition home or self-care (01) ==
LOC: JONCCHEMO 10:10 → J7W 10:48 → JONCCHEMO 12:50
PROVIDERS: ATTEND Internal Medicine Hematology & Oncology
PROC: 3E01305 Introduction of Other Antineoplastic into Subcutaneous Tissue, Percutaneous Approach (ICD-10-PCS; principal; 2024-06-29)
PROC: 3E033GC Introduction of Other Therapeutic Substance into Peripheral Vein, Percutaneous Approach (ICD-10-PCS; 2024-06-29)
DX: Z51.11 Encounter for antineoplastic chemotherapy (principal); C90.00 Multiple myeloma not having achieved remission
CPT/HCPCS: 36415; 80048; 80076; 82784; 83883; 85025; 96365; 96401; J9041

== ENCOUNTER 2024-07-06 10:35 | Day surgery (SDC) | payer OTHER, BC ==
[2024-07-06 11:30] LABS: BASO % 0.2 % (0-2.0); HEMATOCRIT 26.3 % (35.4-49); HEMOGLOBIN 8.8 GM/dL (11.7-16.9); MCH 32.6 pg (25.7-33.7); MCHC 33.5 g/dl (32.0-35.9); MEAN CELL VOLUME 97.3 fl (80-96); MEAN PLT VOLUME 7.9 fl (7.5-11.1); MONO % 12.8 % (3.8-10.2); PLATELET COUNT 209 10^3/uL (134-434); RDW 16.9 % (11.9-15.9); WHITE BLOOD COUNT 3.2 K/mm3 (4.0-10.0)
[2024-07-06 11:50] LABS: CHLORIDE 106 mmol/L (98-107); SODIUM 136 mmol/L (136-145)
[2024-07-06 11:53] LABS: CALCIUM 9.9 mg/dL (8.5-10.1)
[2024-07-06 11:54] LABS: ALBUMIN 3.2 g/dl (3.4-5.0); ANION GAP 3 mmol/L (4-13); BLOOD UREA NITROGEN 18.8 mg/dL (7-18); CO2 27 mmol/L (21-32); GLUCOSE,RANDOM 115 mg/dL (74-106)
[2024-07-06 11:56] LABS: BILIRUBIN,DIRECT 0.1 mg/dL (0.0-0.2)
[2024-07-06 11:57] LABS: CREATININE 1.2 mg/dL (0.55-1.3); SGOT/AST 18 U/L (15-37); SGPT/ALT 25 U/L (13-61)
[2024-07-06 11:58] LABS: BILIRUBIN,TOTAL 0.3 mg/dL (0.2-1); TOT PROT 9.3 g/dl (6.4-8.2)
[2024-07-06 12:00] LABS: ALK PHOS 97 U/L (45-117)
[2024-07-06] MEDS: GRANISETRON HCL 1 MG TABLET PO ONE (12:19)
[2024-07-06] MEDS: DEXAMETHASONE SODIUM PHOSPHATE 20 MG in SODIUM CHLORIDE 50 ML IVPB ONE (12:19)
[2024-07-06] MEDS: BORTEZOMIB 2.5 MG/ML SUB-Q INJECTION SQ ONE (12:55)
[2024-07-06 16:19] VITALS: BP 131/52; PULSE 67; RESP 18; TEMP 97.9
== END 2024-07-06 13:10 | disposition home or self-care (01) ==
LOC: JONCCHEMO 10:35 → J7W 10:38 → JONCCHEMO 13:10
PROVIDERS: ATTEND Internal Medicine Hematology & Oncology
PROC: 3E01305 Introduction of Other Antineoplastic into Subcutaneous Tissue, Percutaneous Approach (ICD-10-PCS; principal; 2024-07-06)
PROC: 3E033GC Introduction of Other Therapeutic Substance into Peripheral Vein, Percutaneous Approach (ICD-10-PCS; 2024-07-06)
DX: Z51.11 Encounter for antineoplastic chemotherapy (principal); C90.00 Multiple myeloma not having achieved remission
CPT/HCPCS: 36415; 80048; 80076; 85025; 96365; 96401; J9041

== ENCOUNTER 2024-07-13 11:24 | Day surgery (SDC) | payer OTHER, BC ==
[~2024-07-13 11:24] MED LIST changes: +DEXAMETHASONE SODIUM PHOSPHATE 20 MG in SODIUM CHLORIDE 50 ML IVPB ONE; -GRANISETRON HCL 1 MG TABLET PO ONE
[2024-07-13 11:53] LABS: BASO % 0.1 % (0-2.0); EOS % 0.7 % (0-4.5); HEMOGLOBIN 8.6 GM/dL (11.7-16.9); LYMPH % 22.1 % (8-40); MCH 32.5 pg (25.7-33.7); MCHC 33.1 g/dl (32.0-35.9); MEAN PLT VOLUME 7.8 fl (7.5-11.1); MONO % 5.8 % (3.8-10.2); NEUT % 71.3 % (42.8-82.8); PLATELET COUNT 210 10^3/uL (134-434); RBC 2.65 M/mm3 (4.00-5.60); RDW 16.8 % (11.9-15.9); WHITE BLOOD COUNT 3.7 K/mm3 (4.0-10.0)
[2024-07-13 12:18] LABS: CHLORIDE 105 mmol/L (98-107); POTASSIUM 4.1 mmol/L (3.5-5.1); SODIUM 136 mmol/L (136-145)
[2024-07-13 12:20] LABS: CALCIUM 9.8 mg/dL (8.5-10.1)
[2024-07-13 12:22] LABS: ALBUMIN 3.2 g/dl (3.4-5.0); ANION GAP 4 mmol/L (4-13); BLOOD UREA NITROGEN 15.8 mg/dL (7-18); CO2 27 mmol/L (21-32); GLUCOSE,RANDOM 108 mg/dL (74-106)
[2024-07-13 12:23] LABS: BILIRUBIN,DIRECT 0.1 mg/dL (0.0-0.2)
[2024-07-13 12:24] LABS: CREATININE 1.2 mg/dL (0.55-1.3); SGOT/AST 15 U/L (15-37); SGPT/ALT 25 U/L (13-61)
[2024-07-13 12:25] LABS: BILIRUBIN,TOTAL 0.4 mg/dL (0.2-1)
[2024-07-13 12:26] LABS: TOT PROT 9.7 g/dl (6.4-8.2)
[2024-07-13 12:27] LABS: ALK PHOS 98 U/L (45-117)
[2024-07-13] MEDS: DEXAMETHASONE SODIUM PHOSPHATE 20 MG, DIPHENHYDRAMINE 50 MG in SODIUM CHLORIDE 100 ML IVPB ONE (12:52)
[2024-07-13] MEDS: GRANISETRON HCL 1 MG TABLET PO ONE (12:52)
[2024-07-13] MEDS: ACETAMINOPHEN 325 MG TABLET (FP) PO ONE (12:53)
[2024-07-13] MEDS: BORTEZOMIB 2.5 MG/ML SUB-Q INJECTION SQ ONE (14:10)
[2024-07-13] MEDS: DARATUMUMAB-HYALURONIDASE-FIHJ (FASPRO) 15 ML VIAL SQ ONE (14:16)
[2024-07-14 02:16] VITALS: BP 145/64; PULSE 57; RESP 18; TEMP 98.5
== END 2024-07-13 14:30 | disposition home or self-care (01) ==
LOC: JONCCHEMO 11:24 → J7W 11:24 → JONCCHEMO 14:30
PROVIDERS: ATTEND Internal Medicine Hematology & Oncology
PROC: 3E01305 Introduction of Other Antineoplastic into Subcutaneous Tissue, Percutaneous Approach (ICD-10-PCS; principal; 2024-07-13)
PROC: 3E033GC Introduction of Other Therapeutic Substance into Peripheral Vein, Percutaneous Approach (ICD-10-PCS; 2024-07-13)
DX: Z51.11 Encounter for antineoplastic chemotherapy (principal); C90.00 Multiple myeloma not having achieved remission
CPT/HCPCS: 36415; 80048; 80076; 85025; 96374; 96401; J9041; J9144

== ENCOUNTER 2024-07-20 10:34 | Day surgery (SDC) | payer OTHER, BC ==
[2024-07-20 11:17] LABS: BASO % 0.1 % (0-2.0); EOS % 0.6 % (0-4.5); HEMATOCRIT 26.1 % (35.4-49); HEMOGLOBIN 8.7 GM/dL (11.7-16.9); MCH 32.5 pg (25.7-33.7); MCHC 33.5 g/dl (32.0-35.9); MEAN PLT VOLUME 7.7 fl (7.5-11.1); MONO % 5.2 % (3.8-10.2); NEUT % 78.1 % (42.8-82.8); PLATELET COUNT 194 10^3/uL (134-434); RBC 2.69 M/mm3 (4.00-5.60); RDW 17.1 % (11.9-15.9); WHITE BLOOD COUNT 4.5 K/mm3 (4.0-10.0)
[2024-07-20 11:40] LABS: CHLORIDE 106 mmol/L (98-107); POTASSIUM 4.1 mmol/L (3.5-5.1); SODIUM 136 mmol/L (136-145)
[2024-07-20 11:53] LABS: ALBUMIN 3.2 g/dl (3.4-5.0); ANION GAP 5 mmol/L (4-13); BLOOD UREA NITROGEN 19.6 mg/dL (7-18); CALCIUM 9.8 mg/dL (8.5-10.1); CO2 25 mmol/L (21-32); GLUCOSE,RANDOM 109 mg/dL (74-106)
[2024-07-20 11:56] LABS: BILIRUBIN,DIRECT 0.1 mg/dL (0.0-0.2); CREATININE 1.3 mg/dL (0.55-1.3); SGOT/AST 17 U/L (15-37)
[2024-07-20 11:57] LABS: SGPT/ALT 21 U/L (13-61)
[2024-07-20 11:58] LABS: BILIRUBIN,TOTAL 0.4 mg/dL (0.2-1); TOT PROT 9.8 g/dl (6.4-8.2)
[2024-07-20 11:59] LABS: ALK PHOS 102 U/L (45-117)
[2024-07-20] MEDS: DEXAMETHASONE SODIUM PHOSPHATE 20 MG, DIPHENHYDRAMINE 50 MG in SODIUM CHLORIDE 100 ML IVPB ONE (12:22)
[2024-07-20] MEDS: GRANISETRON HCL 1 MG TABLET PO ONE (12:22)
[2024-07-20] MEDS: ACETAMINOPHEN 325 MG TABLET (FP) PO ONE (12:23)
[2024-07-20] MEDS: BORTEZOMIB 2.5 MG/ML SUB-Q INJECTION SQ ONE (13:18)
[2024-07-20 15:27] VITALS: RESP 20; TEMP 98.4
[2024-07-20 15:35] VITALS: BP 145/68; PULSE 61
== END 2024-07-20 13:50 | disposition home or self-care (01) ==
LOC: JONCCHEMO 10:34 → J7W 10:35 → JONCCHEMO 13:50
PROVIDERS: ATTEND Internal Medicine Hematology & Oncology
PROC: 3E01305 Introduction of Other Antineoplastic into Subcutaneous Tissue, Percutaneous Approach (ICD-10-PCS; principal; 2024-07-20)
PROC: 3E0333Z Introduction of Anti-inflammatory into Peripheral Vein, Percutaneous Approach (ICD-10-PCS; 2024-07-20)
DX: Z51.11 Encounter for antineoplastic chemotherapy (principal); C90.00 Multiple myeloma not having achieved remission
CPT/HCPCS: 36415; 80048; 80076; 85025; 96365; 96401; J9041

== ENCOUNTER 2024-07-27 10:42 | Day surgery (SDC) | payer OTHER, BC ==
[2024-07-27 12:06] LABS: BASO % 0.1 % (0-2.0); EOS % 2.6 % (0-4.5); HEMATOCRIT 23.2 % (35.4-49); HEMOGLOBIN 7.8 GM/dL (11.7-16.9); LYMPH % 19.9 % (8-40); MCH 32.5 pg (25.7-33.7); MCHC 33.5 g/dl (32.0-35.9); MEAN PLT VOLUME 8.6 fl (7.5-11.1); MONO % 8.5 % (3.8-10.2); NEUT % 68.9 % (42.8-82.8); PLATELET COUNT 162 10^3/uL (134-434); RDW 16.4 % (11.9-15.9); WHITE BLOOD COUNT 2.6 K/mm3 (4.0-10.0)
[2024-07-27 12:16] LABS: CHLORIDE 106 mmol/L (98-107); SODIUM 137 mmol/L (136-145)
[2024-07-27 12:17] LABS: CALCIUM 9.4 mg/dL (8.5-10.1)
[2024-07-27 12:18] LABS: ANION GAP 5 mmol/L (4-13); BLOOD UREA NITROGEN 22.2 mg/dL (7-18); CO2 25 mmol/L (21-32); GLUCOSE,RANDOM 99 mg/dL (74-106)
[2024-07-27 12:21] LABS: CREATININE 1.3 mg/dL (0.55-1.3)
[2024-07-27 12:23] LABS: ALBUMIN 3.1 g/dl (3.4-5.0)
[2024-07-27 12:27] LABS: BILIRUBIN,DIRECT 0.2 mg/dL (0.0-0.2)
[2024-07-27 12:28] LABS: BILIRUBIN,TOTAL 0.5 mg/dL (0.2-1); TOT PROT 8.7 g/dl (6.4-8.2)
[2024-07-27] MEDS: DEXAMETHASONE SODIUM PHOSPHATE 20 MG in SODIUM CHLORIDE 50 ML IVPB ONE (12:51)
[2024-07-27] MEDS: GRANISETRON HCL 1 MG TABLET PO ONE (12:51)
[2024-07-27] MEDS: BORTEZOMIB 2.5 MG/ML SUB-Q INJECTION SQ ONE (13:25)
[2024-07-27 17:37] VITALS: BP 129/54; PULSE 58; RESP 20; TEMP 97.7
== END 2024-07-27 13:45 | disposition home or self-care (01) ==
LOC: JONCCHEMO 10:42 → J7W 10:44 → JONCCHEMO 13:45
PROVIDERS: ATTEND Internal Medicine Hematology & Oncology
PROC: 3E01305 Introduction of Other Antineoplastic into Subcutaneous Tissue, Percutaneous Approach (ICD-10-PCS; principal; 2024-07-27)
PROC: 3E0333Z Introduction of Anti-inflammatory into Peripheral Vein, Percutaneous Approach (ICD-10-PCS; 2024-07-27)
DX: Z51.11 Encounter for antineoplastic chemotherapy (principal); C90.00 Multiple myeloma not having achieved remission
CPT/HCPCS: 36415; 80048; 80076; 85025; 96365; 96401; J9041

== ENCOUNTER 2024-08-03 10:11 | Day surgery (SDC) | payer OTHER, BC ==
[2024-08-03 11:15] LABS: BASO % 0.2 % (0-2.0); HEMATOCRIT 23.5 % (35.4-49); HEMOGLOBIN 7.9 GM/dL (11.7-16.9); LYMPH % 16.3 % (8-40); MCH 32.3 pg (25.7-33.7); MCHC 33.4 g/dl (32.0-35.9); MEAN CELL VOLUME 96.7 fl (80-96); MEAN PLT VOLUME 8.3 fl (7.5-11.1); NEUT % 69.5 % (42.8-82.8); PLATELET COUNT 170 10^3/uL (134-434); RBC 2.43 M/mm3 (4.00-5.60); RDW 16.9 % (11.9-15.9); WHITE BLOOD COUNT 3.1 K/mm3 (4.0-10.0)
[2024-08-03 11:36] LABS: ALBUMIN 3.1 g/dl (3.4-5.0)
[2024-08-03 11:37] LABS: BLOOD UREA NITROGEN 21.2 mg/dL (7-18); CALCIUM 9.5 mg/dL (8.5-10.1)
[2024-08-03 11:38] LABS: BILIRUBIN,DIRECT 0.2 mg/dL (0.0-0.2)
[2024-08-03 11:40] LABS: BILIRUBIN,TOTAL 0.4 mg/dL (0.2-1); TOT PROT 8.3 g/dl (6.4-8.2)
[2024-08-03 11:42] LABS: CREATININE 1.3 mg/dL (0.55-1.3)
[2024-08-03] MEDS: GRANISETRON HCL 1 MG TABLET PO ONE (12:00)
[2024-08-03] MEDS: ACETAMINOPHEN 325 MG TABLET (FP) PO ONE (12:00)
[2024-08-03] MEDS: DEXAMETHASONE SODIUM PHOSPHATE 20 MG, DIPHENHYDRAMINE 50 MG in SODIUM CHLORIDE 100 ML IVPB ONE (12:07)
[2024-08-03] MEDS: BORTEZOMIB 2.5 MG/ML SUB-Q INJECTION SQ ONE (12:08)
[2024-08-03 17:25] VITALS: RESP 18; TEMP 97.5
[2024-08-03 17:31] VITALS: BP 128/56; PULSE 59
== END 2024-08-03 13:30 | disposition home or self-care (01) ==
LOC: JONCCHEMO 10:11
PROVIDERS: ATTEND Internal Medicine Hematology & Oncology
DX: Z51.11 Encounter for antineoplastic chemotherapy (principal); C90.00 Multiple myeloma not having achieved remission
CPT/HCPCS: 36415; 80048; 80076; 85025; 96401; J9041

== ENCOUNTER 2024-08-10 11:29 | Day surgery (SDC) | payer OTHER, BC ==
[2024-08-10 11:39] LABS: BASO % 0.2 % (0-2.0); EOS % 4.5 % (0-4.5); HEMATOCRIT 23.5 % (35.4-49); HEMOGLOBIN 7.8 GM/dL (11.7-16.9); LYMPH % 20.3 % (8-40); MCHC 33.1 g/dl (32.0-35.9); MEAN CELL VOLUME 96.9 fl (80-96); MEAN PLT VOLUME 8.2 fl (7.5-11.1); MONO % 11.7 % (3.8-10.2); NEUT % 63.3 % (42.8-82.8); PLATELET COUNT 171 10^3/uL (134-434); RBC 2.43 M/mm3 (4.00-5.60); RDW 16.8 % (11.9-15.9); WHITE BLOOD COUNT 2.6 K/mm3 (4.0-10.0)
[2024-08-10 12:01] LABS: CHLORIDE 106 mmol/L (98-107); SODIUM 136 mmol/L (136-145)
[2024-08-10 12:02] LABS: BLOOD UREA NITROGEN 17.4 mg/dL (7-18); CALCIUM 9.3 mg/dL (8.5-10.1)
[2024-08-10 12:03] LABS: ANION GAP 3 mmol/L (4-13); CO2 27 mmol/L (21-32); GLUCOSE,RANDOM 105 mg/dL (74-106)
[2024-08-10 12:04] LABS: ALBUMIN 3.1 g/dl (3.4-5.0)
[2024-08-10 12:06] LABS: CREATININE 1.3 mg/dL (0.55-1.3)
[2024-08-10 12:07] LABS: BILIRUBIN,DIRECT 0.2 mg/dL (0.0-0.2)
[2024-08-10 12:09] LABS: BILIRUBIN,TOTAL 0.5 mg/dL (0.2-1)
[2024-08-10] MEDS: GRANISETRON HCL 1 MG TABLET PO ONE (12:32)
[2024-08-10] MEDS: ACETAMINOPHEN 325 MG TABLET (FP) PO ONE (12:32)
[2024-08-10] MEDS: DIPHENHYDRAMINE IVPB ONE (12:33)
[2024-08-10] MEDS: [UNRECOGNIZED DRUG - OTHER] IVPB ONE (12:33)
[2024-08-10] MEDS: DEXAMETHASONE SODIUM PHOSPHATE IVPB ONE (12:33)
[2024-08-10] MEDS: DARATUMUMAB-HYALURONIDASE-FIHJ (FASPRO) 15 ML VIAL SQ ONE (13:12)
[2024-08-10] MEDS: BORTEZOMIB 2.5 MG/ML SUB-Q INJECTION SQ ONE (13:13)
[2024-08-10 16:32] VITALS: BP 135/65; PULSE 64; RESP 20; TEMP 97.9
== END 2024-08-10 13:30 | disposition home or self-care (01) ==
LOC: JONCCHEMO 11:29 → J7W 11:31 → JONCCHEMO 13:30
PROVIDERS: ATTEND Internal Medicine Hematology & Oncology
PROC: 3E01305 Introduction of Other Antineoplastic into Subcutaneous Tissue, Percutaneous Approach (ICD-10-PCS; principal; 2024-08-10)
PROC: 3E01305 Introduction of Other Antineoplastic into Subcutaneous Tissue, Percutaneous Approach (ICD-10-PCS; 2024-08-10)
PROC: 3E033GC Introduction of Other Therapeutic Substance into Peripheral Vein, Percutaneous Approach (ICD-10-PCS; 2024-08-10)
DX: Z51.11 Encounter for antineoplastic chemotherapy (principal); C90.00 Multiple myeloma not having achieved remission
CPT/HCPCS: 36415; 80048; 80076; 85025; 96365; 96401; J9041; J9144

== ENCOUNTER 2024-08-17 12:25 | Day surgery (SDC) | payer OTHER, BC ==
[2024-08-17 11:44] LABS: BASO % 0.2 % (0-2.0); EOS % 4.7 % (0-4.5); HEMOGLOBIN 7.9 GM/dL (11.7-16.9); LYMPH % 14.1 % (8-40); MCH 31.3 pg (25.7-33.7); MCHC 32.9 g/dl (32.0-35.9); MEAN CELL VOLUME 95.1 fl (80-96); MEAN PLT VOLUME 7.8 fl (7.5-11.1); MONO % 8.2 % (3.8-10.2); NEUT % 72.8 % (42.8-82.8); PLATELET COUNT 230 10^3/uL (134-434); RBC 2.53 M/mm3 (4.00-5.60); RDW 16.7 % (11.9-15.9); WHITE BLOOD COUNT 2.8 K/mm3 (4.0-10.0)
[2024-08-17] MEDS: GRANISETRON HCL 1 MG TABLET PO ONE (12:17)
[2024-08-17] MEDS: DEXAMETHASONE SODIUM PHOSPHATE 20 MG in SODIUM CHLORIDE 50 ML IVPB ONE (12:18)
[2024-08-17 13:20] LABS: CHLORIDE 107 mmol/L (98-107); POTASSIUM 4.2 mmol/L (3.5-5.1); SODIUM 137 mmol/L (136-145)
[2024-08-17 13:22] LABS: CALCIUM 8.8 mg/dL (8.5-10.1)
[2024-08-17 13:23] LABS: ALBUMIN 3.1 g/dl (3.4-5.0); ANION GAP 6 mmol/L (4-13); BLOOD UREA NITROGEN 20.3 mg/dL (7-18); CO2 24 mmol/L (21-32); GLUCOSE,RANDOM 131 mg/dL (74-106)
[2024-08-17 13:27] LABS: BILIRUBIN,DIRECT 0.2 mg/dL (0.0-0.2); CREATININE 1.2 mg/dL (0.55-1.3); SGOT/AST 17 U/L (15-37); SGPT/ALT 21 U/L (13-61)
[2024-08-17 13:28] LABS: TOT PROT 7.8 g/dl (6.4-8.2)
[2024-08-17 13:29] LABS: ALK PHOS 121 U/L (45-117); BILIRUBIN,TOTAL 0.5 mg/dL (0.2-1)
[2024-08-17] MEDS: BORTEZOMIB 2.5 MG/ML SUB-Q INJECTION SQ ONE (13:32)
[2024-08-17 16:56] VITALS: RESP 20; TEMP 98
[2024-08-17 16:59] VITALS: BP 114/57; PULSE 59
== END 2024-08-17 14:00 | disposition home or self-care (01) ==
LOC: J7W 12:25 → JONCNONCHE 12:25
PROVIDERS: ATTEND Internal Medicine Hematology & Oncology
PROC: 3E01305 Introduction of Other Antineoplastic into Subcutaneous Tissue, Percutaneous Approach (ICD-10-PCS; principal; 2024-08-17)
PROC: 3E033GC Introduction of Other Therapeutic Substance into Peripheral Vein, Percutaneous Approach (ICD-10-PCS; 2024-08-17)
DX: Z51.11 Encounter for antineoplastic chemotherapy (principal); C90.00 Multiple myeloma not having achieved remission
CPT/HCPCS: 36415; 80048; 80076; 85025; 96374; 96401; J9041

== ENCOUNTER 2024-08-23 09:47 | Emergency (ER) | payer OTHER, BC ==
[2024-08-23 10:01] VITALS: BMI 25.8
[2024-08-23] MEDS ORDERED: ACETAMINOPHEN 325 MG TABLET (FP) ONE (11:59)
[2024-08-23] MEDS: ACETAMINOPHEN 325 MG TABLET (FP) PO ONE (12:06)
[2024-08-23 12:26] LABS: BASO % 0.3 % (0-2.0); EOS % 8.3 % (0-4.5); HEMATOCRIT 23.8 % (35.4-49); HEMOGLOBIN 7.9 GM/dL (11.7-16.9); MCH 31.2 pg (25.7-33.7); MCHC 33.3 g/dl (32.0-35.9); MEAN CELL VOLUME 93.8 fl (80-96); MEAN PLT VOLUME 8.3 fl (7.5-11.1); MONO % 8.8 % (3.8-10.2); NEUT % 65.6 % (42.8-82.8); PLATELET COUNT 237 10^3/uL (134-434); RBC 2.53 M/mm3 (4.00-5.60); WHITE BLOOD COUNT 2.8 K/mm3 (4.0-10.0)
[2024-08-23 12:47] LABS: POTASSIUM 3.9 mmol/L (3.5-5.1)
[2024-08-23 12:50] LABS: BLOOD UREA NITROGEN 16.4 mg/dL (7-18); CALCIUM 9.1 mg/dL (8.5-10.1)
[2024-08-23 12:53] LABS: CREATININE 1.1 mg/dL (0.55-1.3)
[2024-08-23 12:55] LABS: BILIRUBIN,TOTAL 0.5 mg/dL (0.2-1); TOT PROT 7.7 g/dl (6.4-8.2)
[2024-08-23 13:52] VITALS: BP 128/42; PULSE 81; RESP 18; TEMP 98.6
== END 2024-08-23 13:58 | disposition home or self-care (01) ==
LOC: JER 09:47
DX: M79.10 Myalgia, unspecified site (principal)
CPT/HCPCS: 36415; 71045-TC-FY; 80053; 82550; 85025; 99284-25

== ENCOUNTER 2024-08-24 10:54 | Day surgery (SDC) | payer OTHER, BC ==
[2024-08-24 11:04] LABS: BASO % 0.2 % (0-2.0); EOS % 8.3 % (0-4.5); HEMATOCRIT 23.7 % (35.4-49); HEMOGLOBIN 7.8 GM/dL (11.7-16.9); MCH 30.7 pg (25.7-33.7); MCHC 32.7 g/dl (32.0-35.9); MEAN CELL VOLUME 93.8 fl (80-96); MEAN PLT VOLUME 7.6 fl (7.5-11.1); MONO % 9.4 % (3.8-10.2); NEUT % 63.1 % (42.8-82.8); PLATELET COUNT 225 10^3/uL (134-434); RBC 2.53 M/mm3 (4.00-5.60); RDW 16.9 % (11.9-15.9)
[2024-08-24 11:14] VITALS: RESP 18; TEMP 98.1
[2024-08-24 11:33] LABS: CHLORIDE 108 mmol/L (98-107); POTASSIUM 3.8 mmol/L (3.5-5.1); SODIUM 138 mmol/L (136-145)
[2024-08-24 11:35] LABS: ANION GAP 6 mmol/L (4-13); BLOOD UREA NITROGEN 19.8 mg/dL (7-18); CALCIUM 8.8 mg/dL (8.5-10.1); CO2 24 mmol/L (21-32)
[2024-08-24 11:36] LABS: GLUCOSE,RANDOM 106 mg/dL (74-106)
[2024-08-24 11:39] LABS: CREATININE 1.2 mg/dL (0.55-1.3)
[2024-08-24 11:50] LABS: ALBUMIN 2.9 g/dl (3.4-5.0)
[2024-08-24 11:53] LABS: BILIRUBIN,DIRECT 0.2 mg/dL (0.0-0.2)
[2024-08-24 11:55] LABS: BILIRUBIN,TOTAL 0.4 mg/dL (0.2-1); TOT PROT 7.4 g/dl (6.4-8.2)
[2024-08-24] MEDS: DIPHENHYDRAMINE IVPB ONE (12:17)
[2024-08-24] MEDS: [UNRECOGNIZED DRUG - OTHER] IVPB ONE (12:17)
[2024-08-24] MEDS: DEXAMETHASONE SODIUM PHOSPHATE IVPB ONE (12:17)
[2024-08-24] MEDS: ACETAMINOPHEN 325 MG TABLET (FP) PO ONE (12:20)
[2024-08-24] MEDS: GRANISETRON HCL 1 MG TABLET PO ONE (12:20)
[2024-08-24] MEDS: BORTEZOMIB 2.5 MG/ML SUB-Q INJECTION SQ ONE (13:12)
[2024-08-24 13:43] VITALS: BP 113/48; PULSE 61
[2024-08-25 17:07] LABS: FREE KAPPA,SERUM 3.5 mg/L (3.3-19.4)
[2024-08-25 18:07] LABS: IG A QN SERUM. <5 mg/dL (61-437)
== END 2024-08-24 13:35 | disposition home or self-care (01) ==
LOC: JONCCHEMO 10:54 → J7W 10:55 → JONCCHEMO 13:35
PROVIDERS: ATTEND Internal Medicine Hematology & Oncology
PROC: 3E033GC Introduction of Other Therapeutic Substance into Peripheral Vein, Percutaneous Approach (ICD-10-PCS; principal; 2024-08-24)
PROC: 3E01305 Introduction of Other Antineoplastic into Subcutaneous Tissue, Percutaneous Approach (ICD-10-PCS; 2024-08-24)
DX: Z51.11 Encounter for antineoplastic chemotherapy (principal); C90.00 Multiple myeloma not having achieved remission
CPT/HCPCS: 36415; 80048; 80076; 82784; 83883; 85025; 96365; 96401; J9041

== ENCOUNTER 2024-09-28 11:12 | Day surgery (SDC) | payer OTHER, BC ==
[~2024-09-28 11:12] MED LIST changes: +ACETAMINOPHEN 325 MG TABLET (FP) PO ONE; +BORTEZOMIB 2.5 MG/ML SUB-Q INJECTION SQ ONE; +DEXAMETHASONE SODIUM PHOSPHATE 20 MG, DIPHENHYDRAMINE 50 MG in SODIUM CHLORIDE 100 ML IVPB ONE; +GRANISETRON HCL 1 MG TABLET PO ONE
[2024-09-28 11:32] LABS: BASO % 0.3 % (0-2.0); EOS % 1.7 % (0-4.5); HEMATOCRIT 28.9 % (35.4-49); HEMOGLOBIN 9.2 GM/dL (11.7-16.9); LYMPH % 15.4 % (8-40); MCH 28.5 pg (25.7-33.7); MCHC 31.9 g/dl (32.0-35.9); MEAN CELL VOLUME 89.2 fl (80-96); MEAN PLT VOLUME 6.6 fl (7.5-11.1); MONO % 6.9 % (3.8-10.2); NEUT % 75.7 % (42.8-82.8); PLATELET COUNT 253 10^3/uL (134-434); RBC 3.24 M/mm3 (4.00-5.60); RDW 19.7 % (11.9-15.9); WHITE BLOOD COUNT 6.1 K/mm3 (4.0-10.0)
[2024-09-28 11:54] LABS: CHLORIDE 104 mmol/L (98-107); POTASSIUM 3.9 mmol/L (3.5-5.1); SODIUM 138 mmol/L (136-145)
[2024-09-28 11:57] LABS: ALBUMIN 2.9 g/dl (3.4-5.0); ANION GAP 7 mmol/L (4-13); CO2 27 mmol/L (21-32); GLUCOSE,RANDOM 115 mg/dL (74-106)
[2024-09-28 11:58] LABS: BLOOD UREA NITROGEN 25.7 mg/dL (7-18)
[2024-09-28 12:00] LABS: BILIRUBIN,DIRECT 0.2 mg/dL (0.0-0.2); CREATININE 1.5 mg/dL (0.55-1.3); SGPT/ALT 20 U/L (13-61)
[2024-09-28 12:01] LABS: SGOT/AST 13 U/L (15-37)
[2024-09-28 12:02] LABS: BILIRUBIN,TOTAL 0.4 mg/dL (0.2-1); TOT PROT 8.2 g/dl (6.4-8.2)
[2024-09-28 12:03] LABS: ALK PHOS 131 U/L (45-117)
[2024-09-28 12:19] LABS: CALCIUM 14.9 mg/dL (8.5-10.1)
[2024-09-28] MEDS: GRANISETRON HCL 1 MG TABLET PO ONE (12:36)
[2024-09-28] MEDS: ACETAMINOPHEN 325 MG TABLET (FP) PO ONE (12:36)
[2024-09-28] MEDS: DEXAMETHASONE SODIUM PHOSPHATE 20 MG in SODIUM CHLORIDE 50 ML IVPB ONE (13:07)
[2024-09-28] MEDS: DIPHENHYDRAMINE 50 MG in SODIUM CHLORIDE 50 ML IVPB ONE (13:19)
[2024-09-28] MEDS: BORTEZOMIB 2.5 MG/ML SUB-Q INJECTION SQ ONE (13:37)
[2024-09-28] MEDS: DARATUMUMAB-HYALURONIDASE-FIHJ (FASPRO) 15 ML VIAL SQ ONE (13:49)
[2024-09-28 15:41] VITALS: RESP 20; TEMP 97.5
[2024-09-28 15:45] VITALS: BP 118/55; PULSE 55
== END 2024-09-28 14:00 ==
LOC: JONCCHEMO 11:12 → J7W 11:13 → JONCCHEMO 14:00
PROVIDERS: ATTEND Internal Medicine Hematology & Oncology
PROC: 3E033GC Introduction of Other Therapeutic Substance into Peripheral Vein, Percutaneous Approach (ICD-10-PCS; principal; 2024-09-28)
PROC: 3E01305 Introduction of Other Antineoplastic into Subcutaneous Tissue, Percutaneous Approach (ICD-10-PCS; 2024-09-28)
PROC: 3E01305 Introduction of Other Antineoplastic into Subcutaneous Tissue, Percutaneous Approach (ICD-10-PCS; 2024-09-28)
DX: Z51.11 Encounter for antineoplastic chemotherapy (principal); C90.00 Multiple myeloma not having achieved remission
CPT/HCPCS: 36415; 80048; 80076; 85025; 96365; 96366; 96401; J9041; J9144

== ENCOUNTER 2024-10-12 10:59 | Day surgery (SDC) | payer OTHER, BC ==
[2024-10-12] MEDS: ACETAMINOPHEN 325 MG TABLET (FP) PO ONE (11:17)
[2024-10-12] MEDS: GRANISETRON HCL 1 MG TABLET PO ONE (11:17)
[2024-10-12] MEDS: DEXAMETHASONE SODIUM PHOSPHATE 20 MG, DIPHENHYDRAMINE 50 MG in SODIUM CHLORIDE 100 ML IVPB ONE (11:18)
[2024-10-12 11:31] LABS: HEMATOCRIT 22.5 % (35.4-49); HEMOGLOBIN 7.2 GM/dL (11.7-16.9); MCHC 32.1 g/dl (32.0-35.9); MEAN CELL VOLUME 87.3 fl (80-96); MEAN PLT VOLUME 7.1 fl (7.5-11.1); PLATELET COUNT 337 10^3/uL (134-434); RBC 2.57 M/mm3 (4.00-5.60); RDW 20.6 % (11.9-15.9); WHITE BLOOD COUNT 4.5 K/mm3 (4.0-10.0)
[2024-10-12] MEDS: BORTEZOMIB 2.5 MG/ML SUB-Q INJECTION SQ ONE (11:58)
[2024-10-12 12:17] LABS: CHLORIDE 109 mmol/L (98-107); POTASSIUM 3.6 mmol/L (3.5-5.1); SODIUM 140 mmol/L (136-145)
[2024-10-12 12:19] LABS: ALBUMIN 2.4 g/dl (3.4-5.0); ANION GAP 9 mmol/L (4-13); BLOOD UREA NITROGEN 21.3 mg/dL (7-18); CO2 22 mmol/L (21-32); GLUCOSE,RANDOM 110 mg/dL (74-106)
[2024-10-12 12:22] LABS: BILIRUBIN,DIRECT 0.1 mg/dL (0.0-0.2); CREATININE 1.5 mg/dL (0.55-1.3); SGOT/AST 25 U/L (15-37); SGPT/ALT 26 U/L (13-61)
[2024-10-12 12:24] LABS: BILIRUBIN,TOTAL 0.3 mg/dL (0.2-1); CALCIUM 9.3 mg/dL (8.5-10.1); TOT PROT 7.9 g/dl (6.4-8.2)
[2024-10-12 12:25] LABS: ALK PHOS 158 U/L (45-117)
[2024-10-12 17:01] VITALS: RESP 18; TEMP 98
[2024-10-12 17:12] VITALS: BP 125/62; PULSE 69
[2024-10-14 16:08] LABS: IG A QN SERUM. <5 mg/dL (61-437)
[2024-10-15 17:07] LABS: FREE KAPPA,SERUM 3.1 mg/L (3.3-19.4)
[2024-10-16 04:06] LABS: FREE KAP CHN UR 60.57 mg/L (1.17-86.46); KAPPA LAMBDA RATIO URIN 0.27 (1.83-14.26)
== END 2024-10-12 12:30 | disposition home or self-care (01) ==
LOC: JONCNONCHE 10:59 → J7W 11:02 → JONCNONCHE 12:30
PROVIDERS: ATTEND Internal Medicine Hematology & Oncology
PROC: 3E033GC Introduction of Other Therapeutic Substance into Peripheral Vein, Percutaneous Approach (ICD-10-PCS; principal; 2024-10-12)
PROC: 3E01305 Introduction of Other Antineoplastic into Subcutaneous Tissue, Percutaneous Approach (ICD-10-PCS; 2024-10-12)
DX: Z51.11 Encounter for antineoplastic chemotherapy (principal); C90.00 Multiple myeloma not having achieved remission
CPT/HCPCS: 36415; 80048; 80076; 82784; 83883; 85027; 96365; 96401; J9041